=== PATIENT | male | born 1940 | race Caucasian/White ===

== ENCOUNTER 2017-10-04 23:47 | Emergency (ER) | payer MEDICARE ==
[2017-10-05 00:42] VITALS: BP 168/67
--- NOTE | 2017-10-05 01:10 | ED ---
Tyler Mcnamara Angela, scribed for Magalys Maddox MD on 10/05/17 at 0035 . Palpitations / Dysrhythmia - HPI Summary HPI Summary: This pt is a 77 y/o male, accompanied by his daughter, presenting to [facility] for high blood pressure and low heart rate. Daughter is giving the history for the pt. Daughter brings pt in today for pt's high blood pressure and low heart rate since yesterday. Daughter states that yesterday, pt's angle shearer (Dr. Moncada) increased the pt's Metoprolol from 25 mg to 50 mg. Pt took the 50 mg metoprolol yesterday (10/04/17) in the morning. Pt is currently aymptomatic. He denies dizziness, chest pain, SOB, syncope. PMHx: atrial fibrillation, [place], blindness. Pt is on anticoagulants. - History of Current Complaint Chief Complaint: EDDysrhythmPalp Time Seen by Provider: 10/05/17 00:20 Hx Obtained From: Family/High Density Press Operator - Daughter Onset/Duration: Lasting Days, Still Present Timing: Constant Character: Slow - heart rate Aggravating: Medication - increase dosage of Metoprolol. Alleviating: Nothing Associated Signs & Symptoms: Negative - Allergy/Home Medications Allergies/Adverse Reactions: Allergies Allergy/AdvReac Type Severity Reaction Status Date / Time No Known Allergies Allergy Verified 01/20/15 12:29 PMH/Surg Hx/FS Hx/Imm Hx Endocrine/Hematology History: Reports: Hx Anticoagulant Therapy - pradaxa, Hx Diabetes - ON ORAL MEDS Cardiovascular History: Reports: Hx Atrial Fibrillation, Hx Coronary Artery Disease, Hx Hypercholesterolemia, Hx Hypertension - ON MEDS, Hx Peripheral Vascular Disease Respiratory History: Reports: Other Respiratory Problems/Disorders - lung nodule GI History: Reports: Other GI Disorders - Schatzki ring Sensory History: Reports: Hx Cataracts, Hx Contacts or Glasses - GLASSES, Hx Glaucoma, Hx Legally Blind Denies: Hx Hearing Aid Opthamlomology History: Reports: Hx Cataracts, Hx Contacts or Glasses - GLASSES , Hx Glaucoma, Hx Legally Blind Neurological History: Denies: Hx Headaches, Hx Migraine, Hx Seizures, Other Neuro Impairments/ Disorders Psychiatric History: Denies: Hx Anxiety, Hx Depression - Surgical History Surgery Procedure, Year, and Place: THROAT SURGERY [place]. [address] [facility]. [facility] Hx Anesthesia Reactions: No Infectious Disease History: No Infectious Disease History: Denies: Hx of Known/Suspected MRSA, Traveled Outside the [place] in Last 30 Days - Family History Known Family History: Positive: Unknown - pt is not aware - Social History Alcohol Use: None Substance Use Type: Reports: None Smoking Status (MU): Never Smoked Tobacco Have You Smoked in the Last Year: No Review of Systems Negative: Fever, Chills Cardiovascular: Other - low heart rate and high blood pressure, per daughter Negative: Chest Pain Negative: Shortness Of Breath Gastrointestinal: Negative Genitourinary: Negative Musculoskeletal: Negative Skin: Negative Neurological: Other - NEG: dizziness Negative: Syncope All Other Systems Reviewed And Are Negative: Yes Physical Exam - Summary Physical Exam Summary: VITAL SIGNS: Reviewed. GENERAL: Patient is a well-developed and nourished male who is lying comfortable in the stretcher. Patient is not in any acute respiratory distress. HEAD AND FACE: No signs of trauma. No ecchymosis, hematomas or skull depressions. No sinus tenderness. EYES: PERRLA, EOMI x 2, No injected conjunctiva, no nystagmus. EARS: Hearing grossly intact. Ear canals and tympanic membranes are within normal limits. MOUTH: Oropharynx within normal limits. NECK: Supple, trachea is midline, no adenopathy, no JVD, no carotid bruit, no c- spine tenderness, neck with full ROM. CHEST: Symmetric, no tenderness at palpation LUNGS: Clear to auscultation bilaterally. No wheezing or crackles. CVS: Bradycardia that is irregular, S1 and S2 present, no murmurs or gallops appreciated. ABDOMEN: Soft, non-tender. No signs of distention. No rebound no guarding, and no masses palpated. Bowel sounds are normal. EXTREMITIES: FROM in all major joints, no edema, no cyanosis or clubbing. NEURO: Alert and oriented x 3. No acute neurological deficits. Speech is normal and follows commands. SKIN: Dry and warm Triage Information Reviewed: Yes Vital Signs On Initial Exam: Initial Vitals Temp Pulse Resp BP Pulse Ox 97.3 F 102 18 177/72 100 10/04/17 23:50 10/04/17 23:50 10/04/17 23:50 10/04/17 23:50 10/04/17 23:50 Vital Signs Reviewed: Yes Diagnostics - Vital Signs Vital Signs Temp Pulse Resp BP Pulse Ox 10/04/17 23:50 97.3 F 102 18 177/72 100 - Laboratory Lab Statement: Any lab studies that have been ordered have been reviewed, and results considered in the medical decision making process. - EKG 00:03 Cardiac Rate: Bradycardia EKG Rhythm: Atrial Fibrillation - at 49 bpm EKG Interpretation: Left axis deviation. Intraventricular conduction delay. Course/Dx - Course Assessment/Plan: This pt is a 77 y/o male with PMHx of afib presents with high blood pressure and low heart rate. Daughter is giving the history for the pt. Daughter brings pt in today for pt's high blood pressure and low heart rate since yesterday. Daughter states that yesterday, pt's angle shearer (Dr. Moncada) increased the pt's Metoprolol from 25 mg to 50 mg. Pt is anticoagulated. Pt is asymptomatic. He denies dizziness, SOB, chest pain, or syncope. Pt is hemodynamically stable. Heart rate fluctuates between 42 and 55 on the monitor. Pt has a history of afib. Pt's Lopressor dose was changed from 25 mg to 50 mg by his angle shearer yesterday. Pt was advised to decrease his Lopressor dose to 25 mg and follow up with his angle shearer. Pt will be discharged to home. Daughter and pt understand and agree with the plan. - Diagnoses Provider Diagnoses: Atrial fibrillation, Bradycardia Discharge - Discharge Plan Condition: Stable Disposition: HOME Patient Education Materials: A-fib (Atrial Fibrillation) (ED), Bradycardia (ED) Referrals: Coy Forrester MD [Primary Care Provider] - El Moncada MD [Medical Doctor] - 3 Days Additional Instructions: Please follow up with your angle shearer. RETURN TO EMERGENCY DEPARTMENT FOR ANY NEW OR WORSENING SYMPTOMS. The documentation as recorded by the Tyler recinos Angela accurately reflects the service I personally performed and the decisions made by me, Magalys Maddox MD.
== END 2017-10-05 01:08 | disposition home or self-care (01) ==
LOC: ED 23:47
DX: I48.91 Unspecified atrial fibrillation (principal); R00.1 Bradycardia, unspecified; E11.9 Type 2 diabetes mellitus without complications; Z79.01 Long term (current) use of anticoagulants; I25.10 Atherosclerotic heart disease of native coronary artery without angina pectoris; I10 Essential (primary) hypertension; E78.00 Pure hypercholesterolemia, unspecified; I73.9 Peripheral vascular disease, unspecified
CPT/HCPCS: 93005; 99282

== ENCOUNTER 2019-03-11 11:19 | Inpatient (IN) | payer MEDICARE, MEDICAID ==
--- NOTE | 2019-03-11 12:01 | ED ---
Complex/Multi-Sys Presentation - HPI Summary HPI Summary: This patient is a 78 year old M presenting to [facility] by EMS accompanied by daughter with a chief complaint of sudden weakness since 03/11/19. Patients daughter called EMS, after pt complained of weakness that has since resolved. Pt s daughter also reported the pt had diaphoresis, SOB, general weakness, CP on right side radiating to back of shoulder, pressure in stomach, neck pain, normal bowel movement and urination. Patients daughter denies cough, nausea and SOB in the ED. Daughter reports pt had low blood pressure. Pt has had no recent injuries or falls. Pt took nitroglycerine prior to EMS arrival. Symptoms alleviated by nitroglycerin. Pt has a Hx of atrial fibrillation. Pt was able to ambulate. - History Of Current Complaint Chief Complaint: EDGeneral Time Seen by Provider: 03/11/19 11:22 Hx Obtained From: Patient Onset/Duration: Lasting Minutes, Resolved Timing: Minutes Severity Currently: None Severity Initially: Moderate Location: Pain At: - neck which has resolved Associated Signs And Symptoms: Positive: Weakness, SOB - resolved, Chest Pain, Abdominal Pain - pressure, Diaphoresis, Other - neck pain. Negative: Cough - Allergies/Home Medications Allergies/Adverse Reactions: Allergies Allergy/AdvReac Type Severity Reaction Status Date / Time No Known Allergies Allergy Verified 01/20/15 12:29 Home Medications: Home Medications Azelastine HCl [Azelastine Hydrochloride] 0.1 % BOTH NARES BID 03/11/19 [ History Confirmed 03/11/19] Ciclopirox Olamine [Ciclopirox] 0.77 % TOPICAL BID 03/11/19 [History Confirmed 03/11/19] Furosemide TAB* [Lasix TAB*] 20 mg PO DAILY 03/11/19 [History Confirmed 03/11/19 ] Losartan TAB* [Cozaar TAB*] 100 mg PO DAILY 03/11/19 [History Confirmed 03/11/19 ] Mirtazapine TAB* [Remeron TAB*] 7.5 mg PO BEDTIME 03/11/19 [History Confirmed ] Spironolactone/HCTZ 25-25 MG* [Aldactazide 25-25*] 1 tab PO DAILY 03/11/19 [ History Confirmed 03/11/19] dilTIAZem HCl [Diltiazem 24Hr ER] 240 mg PO DAILY 03/11/19 [History Confirmed ] glipiZIDE TAB.XL* [Glucotrol XL*] 2.5 mg PO DAILY 03/11/19 [History Confirmed ] PMH/Surg Hx/FS Hx/Imm Hx Endocrine/Hematology History: Reports: Hx Anticoagulant Therapy - pradaxa, Hx Diabetes - ON ORAL MEDS Cardiovascular History: Reports: Hx Atrial Fibrillation, Hx Coronary Artery Disease, Hx Hypercholesterolemia, Hx Hypertension - ON MEDS, Hx Peripheral Vascular Disease Denies: Hx Pacemaker/ICD Respiratory History: Reports: Other Respiratory Problems/Disorders - lung nodule GI History: Reports: Other GI Disorders - Schatzki ring Sensory History: Reports: Hx Cataracts, Hx Contacts or Glasses - GLASSES, Hx Glaucoma, Hx Legally Blind Denies: Hx Hearing Aid Opthamlomology History: Reports: Hx Cataracts, Hx Contacts or Glasses - GLASSES , Hx Glaucoma, Hx Legally Blind Neurological History: Denies: Hx Headaches, Hx Migraine, Hx Seizures, Other Neuro Impairments/ Disorders Psychiatric History: Denies: Hx Anxiety, Hx Depression, Hx Panic Disorder - Surgical History Surgery Procedure, Year, and Place: 1960s [facility] SURGERY [place]. [address] [facility]. 2008 [facility] Hx Anesthesia Reactions: No Infectious Disease History: No Infectious Disease History: Denies: Hx of Known/Suspected MRSA, Traveled Outside the [place] in Last 30 Days - Family History Known Family History: Positive: Unknown - pt is not aware - Social History Alcohol Use: None Substance Use Type: Reports: None Smoking Status (MU): Never Smoked Tobacco Have You Smoked in the Last Year: No Review of Systems Positive: Skin Diaphoresis Positive: Chest Pain Positive: Shortness Of Breath. Negative: Cough Positive: Abdominal Pain Positive: Other - neck pain Positive: Weakness All Other Systems Reviewed And Are Negative: Yes Physical Exam - Summary Physical Exam Summary: Constitutional: Well-developed, Well-nourished, Alert. (-) Distressed Skin: Warm, Dry HENT: Normocephalic; Atraumatic Eyes: Conjunctiva normal Neck: Musculoskeletal ROM normal neck. (-) JVD, (-) Stridor, (-) Tracheal deviation Cardio: Rhythm regular, rate normal, Heart sounds normal; Intact distal pulses; The pedal pulses are 2+ and symmetric. Radial pulses are 2+ and symmetric. (-) Murmur Pulmonary/Chest wall: Effort normal. (-) Respiratory distress, (-) Wheezes, (-) Rales Abd: Soft, (-) tenderness, (-) Distension, (-) Guarding, (-) Rebound Musculoskeletal: (-) Edema Lymph: (-) Cervical adenopathy Neuro: Alert, Oriented x3 Psych: Mood and affect Normal Triage Information Reviewed: Yes Vital Signs On Initial Exam: Initial Vitals Temp Pulse Resp BP Pulse Ox 98.5 F 69 16 167/87 97 03/11/19 11:32 03/11/19 11:32 03/11/19 11:32 03/11/19 11:32 03/11/19 11:32 Vital Signs Reviewed: Yes Diagnostics - Vital Signs Vital Signs Temp Pulse Resp BP Pulse Ox 03/11/19 11:32 98.5 F 69 16 167/87 97 - Laboratory Result Diagrams: 03/11/19 13:37 03/11/19 17:35 Lab Statement: Any lab studies that have been ordered have been reviewed, and results considered in the medical decision making process. - Radiology CXR Radiology Interpretation Completed By: Radiologist Summary of Radiographic Findings: CXR reveals, per radiologist, IMPRESSION: NO ACTIVE CARDIOPULMONARY DISEASE IS NOTED. ED physician has reviewed this radiology report. - CT Neck CTA CT Interpretation Completed By: Radiologist Summary of CT Findings: Neck CTA reveals, per radiologist. IMPRESSION: #. Bilateral occluded carotid arteries as described. Supply of the anterior circulation at. the [place] by the posterior circulation via prominent posterior communicating. arteries. #. Negative for dissection or aneurysm of the thoracic aorta. #. Negative for pulmonary embolism. ED physician has reviewed this radiology report. Chest/Thorax CTA CT Interpretation Completed By: Radiologist Summary of CT Findings: Chest/Thorax CTA reveals, per radiologist IMPRESSION: # . Bilateral occluded carotid arteries as described. Supply of the anterior circulation at the [place] by the posterior circulation via prominent posterior communicating arteries. #. Negative for dissection or aneurysm of the thoracic aorta. #. Negative for pulmonary embolism. ED physician has reviewed this radiology report. - EKG 1134 EKG Rhythm: Atrial Fibrillation Summary of EKG Findings: An EKG reveals atrial fibrillation rate 85 bpm, no [place], prolonged QRS, borderline QTc, ST-elevatation in V1, V2, V3, and V4, t-waves inverted in V6, and V1, Atrial fibrillation and incomplete, RBB, LVH, nonspecific EKG. Re-Evaluation - Re-Evaluation First Eval Re-Evaluation Time: 16:49 Comment: Discussed results with pt. Second Eval Re-Evaluation Time: 17:54 Comment: Discusses plan of care with pt. Third Eval Re-Evaluation Time: 18:50 Comment: Told pt he would be admitted. Complex Multi-Symp Course/Dx Course Of Treatment: This patient is a 78 year old M presenting to [facility] by EMS accompanied by daughter with a chief complaint of sudden weakness since . Patients daughter called EMS, after pt complained of weakness that has since resolved. Pts daughter also reported the pt had diaphoresis, SOB, general weakness, CP on right side radiating to back of shoulder, pressure in stomach, neck pain, normal bowel movement and urination. Patients daughter denies cough, nausea and SOB in the ED. Daughter reports pt had low blood pressure. Pt has had no recent injuries or falls. Pt took nitroglycerine prior to EMS arrival. Symptoms alleviated by nitroglycerin. Pt has a Hx of atrial fibrillation. Pt was able to ambulate. Physical Exam Findings are normal. Blood work obtained. An EKG reveals atrial fibrillation rate 85 bpm, no [place], prolonged QRS, borderline QTc, ST-elevatation in V1, V2, V3, and V4, t-waves inverted in V6, and V1, Atrial fibrillation and incomplete, RBB, LVH, nonspecific EKG. CXR reveals, per radiologist, IMPRESSION: NO ACTIVE CARDIOPULMONARY DISEASE IS NOTED. Neck CTA reveals, per radiologist. IMPRESSION: #. Bilateral occluded carotid arteries as described. Supply of the anterior circulation at. the [place] by the posterior circulation via prominent posterior communicating. arteries. #. Negative for dissection or aneurysm of the thoracic aorta. #. Negative for pulmonary embolism. Chest/ Thorax CTA reveals, per radiologist IMPRESSION: #. Bilateral occluded carotid arteries as described. Supply of the anterior circulation at. the [place] by the posterior circulation via prominent posterior communicating. arteries. #. Negative for dissection or aneurysm of the thoracic aorta. #. Negative for pulmonary embolism. We discussed patient care with Dr. Corea and he refuses pt for transfer. Dr. Morrison and he accepted pt. Dx is carotid dissection. Patient will be admitted to [facility]. The patient is agreeable with this plan. - Diagnoses Provider Diagnoses: Carotid dissection, bilateral - Physician Notifications Discussed Care Of Patient With: Rodrigo Morrison Time Discussed With Above Provider: 18:26 Instructed by Provider To: Other - Discussed case with Dr. Morrison, who agrees to admit pt; 18:20 - Dr. Croea at [facility] refuses transfer. Discharge - Sign-Out/Discharge Documenting (check all that apply): Patient Departure - Admit Patient Received Moderate/Deep Sedation with Procedure: No - Discharge Plan Condition: Good Disposition: ADMITTED TO [facility] Referrals: Coy Forrester MD [Primary Care Provider] - - Billing Disposition and Condition Condition: GOOD Disposition: Admitted to [facility] - Attestation Statements Document Initiated by Madhuri: Yes Documenting Scribe: Coni Allen Provider For Whom Madhuri is Documenting (Include Credential): Janet Escobedo MD Scribe Attestation: Coni Mcnamara scribed for Janet Sheldon MD on 03/11/19 at 1908. Scribe Documentation Reviewed: Yes Provider Attestation: The documentation as recorded by the Coni recinos accurately reflects the service I personally performed and the decisions made by , Janet Sheldon MD Status of Scribe Document: Viewed
--- OUTSIDE RECORDS SUMMARY | 2019-03-11 12:04 | XMS REPORT | Continuity of Care Document ---
:1940 External Reference #:[id number] Author Name Margarita Almonte Care Team Providers Name Role Phone Coy Forrester MD Primary Care Physician Unavailable Payers Date Identification Numbers Payment Provider Subscriber Policy Number: [id number] Medicare Timbo Bishop PayID: [id number] [address] [place] [address] Policy Number: [id number] Medicaid Timbo Bishop Group Name: 1 1 [address] PayID: [id number] [place] [address] Expires: 2018 Policy Number: [id number] Medicaid Timbo Bishop PayID: [id number] [address] [place] [address] Social History Type Date Description Comments Sex Unknown Tobacco Use Start: Unknown Patient has never smoked Smoking Status Reviewed: 02/12/19 Patient has never smoked Allergies, Adverse Reactions, Alerts Description No Known Drug Allergies Medications Active Medications SIG Qnty Indications Ordering Provider Date Ciclopirox Olamine apply to affected 1tube L30.9 Ozzie Ace 09/10/2018 0.77% area twice daily Latasha Solo Cream Spironolactone/Hydroch Take 1 Tablet By Unknown lorothiazide Mouth Every Day 25-25mg Tablets Eliquis 1 by mouth twice Unknown 5mg Tablets a day Travoprost both eyes at Unknown 0.004% bedtime Solution Brimonidine Tartrate 1 drop to both Unknown 0.2% eyes twice daily Solution Losartan Potassium 1 by mouth every Unknown 50mg day Tablets Diltiazem HCL 1 by mouth every Unknown 180mg morning, 2 by Tablets mouth every evening Metoprolol Succinate 1 by mouth every Unknown ER day 50mg Tablets ER 24HR Nitroglycerin 1 under tounge Unknown 0.4mg every 5 min prn, Tablets Sub may repeat 3x Timolol Maleate 1 drop to both Unknown 0.25% eyes once a day Solution Atorvastatin Calcium 1 by mouth every Unknown 80mg day Tablets History Medications Triamcinolone twice daily for 30gm L30.9 Ozzie Ace 08/09/2018 - Acetonide 2 weeks, then Latasha Solo 02/12/2019 0.1% Ointment hold for 1 week, then twice daily for 2 weeks Amoxicillin 1 by mouth two 20tabs LLillie.[id number] Ozzie Ace 07/25/2018 - 500mg times a day Latasha Solo 08/08/2018 Tablets Ciclopirox Olamine apply to 1tmarisela Ace 03/29/2017 - affected area Latasha Solo 09/09/2018 0.77% Cream twice daily Fluconazole 1 by mouth every 10tabs Gabriel Ace 11/02/2016 - 200mg day Latasha Solo 11/12/2016 Tablets Ciclopirox Olamine apply to 1tmarisela Bhatt03.032 Ozzie Ace 08/30/2016 - affected area Latasha Solo 04/26/2017 0.77% Cream twice daily for 6 weeks Clindamycin HCL 1 tabs by mouth 30caps I73.9 Ozzie Ace 08/16/2016 - 300mg 3 times a day Latasha Solo 08/30/2016 Capsules Bactrim DS 1 by mouth twice Unknown - 800-160mg a day 07/30/2016 Tablets Pradaxa 1 by mouth twice Unknown - 75mg Capsules a day 07/30/2016 Clopidogrel Bisulfate 1 by mouth every Unknown - day 07/30/2016 75mg Tablets Doxycycline Hyclate one tablet twice Unknown - daily 08/29/2016 100mg Capsules Vital Signs Date Vital Result Comment 02/12/2019 11:15am Height 64 inches 5'4" Weight 124.38 lb Heart Rate 72 /min BP Systolic Sitting 158 mmHg BP Diastolic Sitting 88 mmHg Respiratory Rate 14 /min Body Temperature 97.1 F BMI (Body Mass Index) 21.3 kg/m2 11/12/2018 11:13am Height 64 inches 5'4" Weight 125.38 lb Heart Rate 92 /min BP Systolic Sitting 162 mmHg BP Diastolic Sitting 98 mmHg Respiratory Rate 14 /min Body Temperature 96.4 F BMI (Body Mass Index) 21.5 kg/m2 09/10/2018 11:20am Height 64 inches 5'4" Weight 130.25 lb Heart Rate 74 /min BP Systolic Sitting 142 mmHg BP Diastolic Sitting 90 mmHg Respiratory Rate 14 /min Body Temperature 97.6 F BMI (Body Mass Index) 22.4 kg/m2 08/09/2018 10:18am Height 64 inches 5'4" Weight 133.00 lb Heart Rate 72 /min BP Systolic Sitting 180 mmHg BP Diastolic Sitting 96 mmHg Respiratory Rate 14 /min Body Temperature 96.2 F BMI (Body Mass Index) 22.8 kg/m2 07/25/2018 4:35pm Height 64 inches 5'4" Weight 132.12 lb Heart Rate 92 /min BP Systolic Sitting 180 mmHg BP Diastolic Sitting 100 mmHg Respiratory Rate 14 /min Body Temperature 97.1 F BMI (Body Mass Index) 22.7 kg/m2 11/07/2017 11:17am Height 64 inches 5'4" Weight 134.12 lb Heart Rate 110 /min BP Systolic Sitting 178 mmHg BP Diastolic Sitting 78 mmHg Respiratory Rate 14 /min Body Temperature 97.2 F BMI (Body Mass Index) 23.0 kg/m2 05/31/2017 1:27pm Height 64 inches 5'4" Weight 132.00 lb Heart Rate 60 /min BP Systolic Sitting 128 mmHg BP Diastolic Sitting 72 mmHg Respiratory Rate 14 /min Body Temperature 97.3 F BMI (Body Mass Index) 22.7 kg/m2 05/01/2017 2:59pm Height 64 inches 5'4" Weight 136.12 lb Heart Rate 88 /min BP Systolic Sitting 142 mmHg BP Diastolic Sitting 84 mmHg Respiratory Rate 14 /min Body Temperature 97.9 F BMI (Body Mass Index) 23.4 kg/m2 03/29/2017 1:10pm Height 64 inches 5'4" Weight 132.50 lb Heart Rate 88 /min BP Systolic Sitting 160 mmHg BP Diastolic Sitting 96 mmHg Respiratory Rate 14 /min Body Temperature 97.9 F BMI (Body Mass Index) 22.7 kg/m2 01/25/2017 2:22pm Height 64 inches 5'4" Weight 136.12 lb Heart Rate 84 /min BP Systolic Sitting 140 mmHg BP Diastolic Sitting 86 mmHg Respiratory Rate 14 /min Body Temperature 97.0 F BMI (Body Mass Index) 23.4 kg/m2 12/21/2016 2:49pm Height 64 inches 5'4" Weight 134.00 lb Heart Rate 72 /min BP Systolic Sitting 158 mmHg BP Diastolic Sitting 88 mmHg Respiratory Rate 14 /min Body Temperature 97.1 F BMI (Body Mass Index) 23.0 kg/m2 12/04/2016 3:08pm Height 64 inches 5'4" Weight 136.00 lb Heart Rate 56 /min BP Systolic Sitting 120 mmHg BP Diastolic Sitting 68 mmHg Respiratory Rate 14 /min Body Temperature 96.9 F BMI (Body Mass Index) 23.3 kg/m2 11/02/2016 1:30pm Height 64 inches 5'4" Weight 134.00 lb Heart Rate 84 /min BP Systolic Sitting 124 mmHg BP Diastolic Sitting 88 mmHg Respiratory Rate 14 /min Body Temperature 97.5 F BMI (Body Mass Index) 23.0 kg/m2 09/22/2016 11:15am Height 64 inches 5'4" Weight 139.12 lb Heart Rate 72 /min BP Systolic Sitting 148 mmHg BP Diastolic Sitting 80 mmHg Respiratory Rate 14 /min Body Temperature 96.5 F BMI (Body Mass Index) 23.9 kg/m2 08/30/2016 2:46pm Height 64 inches 5'4" Weight 139.38 lb Heart Rate 60 /min BP Systolic Sitting 148 mmHg BP Diastolic Sitting 88 mmHg Respiratory Rate 14 /min Body Temperature 96.9 F BMI (Body Mass Index) 23.9 kg/m2 08/16/2016 2:14pm Height 64 inches 5'4" Weight 142.00 lb Heart Rate 72 /min BP Systolic Sitting 142 mmHg BP Diastolic Sitting 82 mmHg Respiratory Rate 14 /min Body Temperature 97.9 F BMI (Body Mass Index) 24.4 kg/m2 07/31/2016 3:10pm Height 64 inches 5'4" Weight 129.00 lb Heart Rate 62 /min BP Systolic Sitting 128 mmHg right arm, reg cuff BP Diastolic Sitting 84 mmHg right arm, reg cuff Respiratory Rate 20 /min BMI (Body Mass Index) 22.1 kg/m2 07/31/2016 2:12pm Height 64 inches Weight 131.00 lb Heart Rate 66 /min BP Systolic Sitting 118 mmHg BP Diastolic Sitting 86 mmHg Respiratory Rate 14 /min Body Temperature 96.1 F BMI (Body Mass Index) 22.5 kg/m2 Results Test Date Facility Test Result H/L Range Note Comp Metabolic Panel 08/15/2016 [facility] Sodium 138 mmol/L N 133-[address] [place] [address] [phone] Potassium 4.5 mmol/L N 3.5-5.0 Chloride 105 mmol/L N 101-111 Co2 Carbon Dioxide 30 mmol/L N 22-32 Anion Gap 3 mmol/L N 2-11 Glucose 91 mg/dL N 70-100 Blood Urea Nitrogen 21 mg/dL N 6-24 Creatinine 1.11 mg/dL N 0.67-1.17 BUN/Creatinine Ratio 18.9 N 8-20 Calcium 9.8 mg/dL N 8.6-10.3 Total Protein 6.7 g/dL N 6.4-8.9 Albumin 4.1 g/dL N 3.2-5.2 Globulin 2.6 g/dL N 2-4 Albumin/Globulin Ratio 1.6 N 1-3 Total Bilirubin 1.00 mg/dL N 0.2-1.0 Alkaline Phosphatase 67 U/L N 34-104 Alt 33 U/L N 7-52 Ast 22 U/L N 13-39 Egfr Non- 64.1 N >60 Egfr 82.4 N >60 1 Laboratory test 08/15/2016 [facility] C Reactive < 1.00 N < 5.00 [address] Protein mg/[place] [address] [phone] Laboratory test 07/25/2016 [facility] Point of Care 185 mg/dL High 74-106 [address] [place] [address] [phone] CBC Auto Diff 07/24/2016 [facility] White Blood 12.9 High 3.5- 10.[address] Count 10^3/[place] [address] [phone] Red Blood Count 4.11 10^6/uL N 4.0-5.4 Hemoglobin 13.0 g/dL Low 14.0-18.0 Hematocrit 40 % Low 42-52 Mean Corpuscular Volume 97 fL High 80-94 Mean Corpuscular Hemoglobin 32 pg High 27-31 Mean Corpuscular HGB Conc 32 g/dL N 31-36 Red Cell Distribution Width 15 % N 10.5-15 Platelet Count 233 10^3/uL N 150-450 Mean Platelet Volume 9 um3 N 7.4-10.4 Abs Neutrophils 10.9 10^3/uL High 1.5-7.7 Abs Lymphocytes 1.3 10^3/uL N 1.0-4.8 Abs Monocytes 0.6 10^3/uL N 0-0.8 Abs Eosinophils 0 10^3/uL N 0-0.6 Abs Basophils 0.2 10^3/uL N 0-0.2 Abs Nucleated RBC 0 10^3/uL N Granulocyte % 84.3 % High 38-83 Lymphocyte % 9.7 % Low 25-47 Monocyte % 4.7 % N 1-9 Eosinophil % 0.1 % N 0-6 Basophil % 1.2 % N 0-2 Nucleated Red Blood Cells % 0 N Basic Metabolic Panel 07/24/2016 [facility] Sodium 134 mmol/L N 133-145 [address] [place] [address] [phone] Potassium 5.1 mmol/L High 3.5-5.0 Chloride 102 mmol/L N 101-111 Co2 Carbon Dioxide 26 mmol/L N 22-32 Anion Gap 6 mmol/L N 2-11 Glucose 177 mg/dL High 70-100 Blood Urea Nitrogen 31 mg/dL High 6-24 Creatinine 2.33 mg/dL High 0.67-1.17 BUN/Creatinine Ratio 13.3 N 8-20 Calcium 9.9 mg/dL N 8.6-10.3 Egfr Non- 27.2 N >60 Egfr 35.0 N >60 4 1 Because ethnic data is not always readily available, this report includes an eGFR for both -Americans and non- Americans. The National Kidney Disease Education Program (NKDEP) does not endorse the use of the MDRD equation for patients that are not between the ages of 18 and 70, are , have extremes of body size, muscle mass, or nutritional status, or are non- or non-. According to the National Kidney Foundation, irrespective of diagnosis, the stage of the disease is based on the level of kidney function: Stage Description GFR(mL/min/1.73 m(2)) 1 Kidney damage with normal or decreased GFR 90 2 Kidney damage with mild decrease in GFR 60-89 3 Moderate decrease in GFR 30-59 4 Severe decrease in GFR 15-29 5 Kidney failure <15 (or dialysis) 2 Acute inflammation: >10.00 3 Director Of Services: [id number] JAYDEN ZEE 4 Because ethnic data is not always readily available, this report includes an eGFR for both -Americans and non- Americans. The National Kidney Disease Education Program (NKDEP) does not endorse the use of the MDRD equation for patients that are not between the ages of 18 and 70, are , have extremes of body size, muscle mass, or nutritional status, or are non- or non-. According to the National Kidney Foundation, irrespective of diagnosis, the stage of the disease is based on the level of kidney function: Stage Description GFR(mL/min/1.73 m(2)) 1 Kidney damage with normal or decreased GFR 90 2 Kidney damage with mild decrease in GFR 60-89 3 Moderate decrease in GFR 30-59 4 Severe decrease in GFR 15-29 5 Kidney failure <15 (or dialysis) Procedures Date Code Description Status 07/25/2016 05405 Angio Extremity, Bilateral Completed 07/25/2016 22888 Cath Placement-Abdom, Pelvic Or Lower Extremity Completed Encounters Type Date Location Provider Dx Diagnosis Office Visit 11/12/2018 [facility] Douglas Ace L30.9 Dermatitis, 10:50a Infectious Nehal Solo. unspecified Diseases Office Visit 09/10/2018 [facility] Douglas Ace L30.9 Dermatitis, 10:50a Infectious Nehal Solo. unspecified Diseases L03.032 Cellulitis of left toe Office Visit 08/09/2018 [facility] Ozzie Ace L30.9 Dermatitis, 10:10a For Infectious Latasha Solo unspecified Diseases Office Visit 07/25/2018 [facility] Ozzie Ace L03.032 Cellulitis of 4:20p For Infectious [place]que[place], M.D. left toe Diseases Office Visit 11/07/2017 [facility] Ozzie Ace R21 Rash and other 11:10a For Infectious Nehal Solo. nonspecific skin Diseases eruption Office Visit 05/31/2017 [facility] Ozzie Ace L03.032 Cellulitis of 1:20p For Infectious Nehal Solo. left toe Diseases Office Visit 05/01/2017 [facility] Ozzie Ace L03.032 Cellulitis of 3:00p For Infectious Nehal Solo. left toe Diseases Office Visit 03/29/2017 [facility] Ozzie Ace E11.40 Type 2 diabetes 1:20p For Infectious Latasha Solo mellitus with Diseases diabetic neuropathy, unsp L03.032 Cellulitis of left toe Office Visit 01/25/2017 2:00p [facility] Douglas Ace I73.9 Peripheral Infectious Nehal Solo. vascular disease, Diseases unspecified E11.40 Type 2 diabetes mellitus with diabetic neuropathy, unsp L03.032 Cellulitis of left toe Office Visit 12/21/2016 2:40p [facility] Ozzie Ace I73.9 Peripheral Infectious Nehal Solo. vascular disease, Diseases unspecified Z86.19 Personal history of other infectious and parasitic diseases E11.9 Type 2 diabetes mellitus without complications H61.21 Impacted cerumen, right ear Office Visit 12/04/2016 3:00p [facility] Douglas Ace I73.9 Peripheral Infectious Nehal Solo. vascular disease, Diseases unspecified Z86.19 Personal history of other infectious and parasitic diseases L03.032 Cellulitis of left toe Office Visit 11/02/2016 1:20p [facility] Ozzie Ace L03.032 Cellulitis of For Infectious Latasha Solo left toe Diseases I73.9 Peripheral vascular disease, unspecified Office Visit 09/22/2016 11:10a [facility] Ozzie Ace L03.032 Cellulitis of For Infectious Latasha Solo left toe Diseases E11.9 Type 2 diabetes mellitus without complications Office Visit 08/30/2016 2:20p [facility] Douglas Ace I73.9 Peripheral Infectious Nehal Solo. vascular disease, Diseases unspecified L03.032 Cellulitis of left toe Office Visit 08/16/2016 1:40p [facility] Ozzie Ace L03.116 Cellulitis of For Infectious Nehal Solo. left lower limb Diseases I73.9 Peripheral vascular disease, unspecified Office Visit 07/31/2016 [facility] Ozzie Ace M86.272 Subacute 2:00p For Infectious Nehal Solo. osteomyelitis, left Diseases ankle and foot I73.9 Peripheral vascular disease, unspecified L03.032 Cellulitis of left toe Office Visit 07/31/2016 3:00p [facility] Reese Gandhi. I73.9 Peripheral Of [place] [facility] [place] Christel, vascular disease, FACC, FSCAI unspecified N18.4 Chronic kidney disease, stage 4 (severe) Office Visit 07/14/2016 [facility] Rambo M86.272 Subacute 10:37a wilmer Tobar M.D. 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 osteomyelitis, left Hospitalists ankle and foot E11.9 Type 2 diabetes mellitus without complications I73.9 Peripheral vascular disease, unspecified I10 Essential (primary) hypertension Office Visit 07/12/2016 10:37a [facility] Ozzie Ace L03.032 Cellulitis of For Infectious Latasha Solo left toe Diseases I73.9 Peripheral vascular disease, unspecified E11.40 Type 2 diabetes mellitus with diabetic neuropathy, unsp Office Visit 07/12/2016 [facility] Gisselle M86.272 Subacute 10:36a [facility], DO osteomyelitis, left Hospitalists ankle and foot E11.9 Type 2 diabetes mellitus without complications I73.9 Peripheral vascular disease, unspecified I10 Essential (primary) hypertension Office Visit 07/12/2016 1:19p [facility] Reese Fuentes I73.9 Peripheral Of [facility] [place] [facility] [place] Christel, vascular disease, FACC, FSCAI unspecified I48.2 Chronic atrial fibrillation Plan of Treatment Future Appointment(s):05/16/2019 10:30 am - Ozzie Solo M.D. at [facility] For Infectious Iayatrfq47/19/2019 - Ozzie Solo M.D.L30.9 Dermatitis, unspecifiedComments:chronic paronychia will see if any surgical options to open itReferral:Amado Burks MD, Surgery,OrthopedicFollow up:3 months
[2019-03-11 12:59] LABS: Troponin I 0.01 ng/mL (<0.04)
[2019-03-11 13:04] LABS: Blood Urea Nitrogen 27 mg/dL (6-24); CO2 Carbon Dioxide 23 mmol/L (22-32); Chloride 103 mmol/L (101-111); Glucose 226 mg/dL (70-100); Sodium 137 mmol/L (135-145)
[2019-03-11 13:05] LABS: ALT 14 U/L (7-52); Albumin 4.1 g/dL (3.2-5.2); Albumin/Globulin Ratio 1.4 (1-3); Alkaline Phosphatase 74 U/L (34-104); BUN/Creatinine Ratio 16.3 (8-20); Calcium 9.7 mg/dL (8.6-10.3); EGFR African American 48.5 (>60); EGFR Non-African American 40.1 (>60); Globulin 2.9 g/dL (2-4)
[2019-03-11 13:10] LABS: Anion Gap 11 mmol/L (2-11)
[2019-03-11 13:51] LABS: ABS Basophils 0.1 10^3/ul (0-0.2); ABS Lymphocytes 0.7 10^3/ul (1.0-4.8); ABS Monocytes 0.9 10^3/ul (0-0.8); ABS Neutrophils 15.8 10^3/ul (1.5-7.7); Eosinophil % 0.2 %; Hematocrit 45 % (42-52); Hemoglobin 14.9 g/dL (14.0-18.0); Lymphocyte % 3.8 %; Mean Corpuscular HGB Conc 33 g/dL (31-36); Mean Corpuscular Hemoglobin 32 pg (27-31); Mean Corpuscular Volume 97 fL (80-94); Mean Platelet Volume 9.3 fL (7.4-10.4); Platelet Count 193 10^3/uL (150-450); Red Blood Count 4.63 10^6 /uL (4.18-5.48); Red Cell Distribution Width 14 % (10-15); White Blood Count 17.5 10^3/uL (3.5-10.8)
[2019-03-11] MEDS ORDERED: Iodixanol* (CONTRAST) 320 MG/ML 100 ML SDV IV ONE (15:21)
[2019-03-11 18:06] LABS: Potassium Redraw 4.2 mmol/L (3.5-5.0)
--- NOTE | 2019-03-11 20:15 | HP ---
History of Present Illness - History of Present Illness Reason for Visit: Generalized weakness History of Present Illness: Patient speaks ivorian and refused translation system in ER so the son who was present was translating. 78 year old male with DM, A. Fib on Eliquis, HTN here due to sudden onset weakness 03/11/2019 at 9AM lasting about an hour. Weakness was generalized not localized to one limb. He felt faint and felt like he was going to pass out. Also had chest pain on the right anterior chest radiating to the back of his neck. Patient also had diaphoresis, and noted to have low BP at home. Denies any SOB, nausea. Symptoms resolved with nitroglycerine. Initially was noted to have low BP but while in ER the BP went from low to very high along with CT findings concerning for bilateral carotid occlusions. Past Medical History Diabetes - ON ORAL MEDS Atrial Fibrillation on Eliquis Coronary Artery Disease s/p one [place] but no stents. Hypercholesterolemia Hypertension - ON MEDS Peripheral Vascular Disease Dysphagia Schatzki ring Cataracts s/p surgries Glaucoma Legally Blind Past Surgical History 1960s Throat SURGERY [facility]. [address] [facility] OFFICE. 2008 GLAUCOMA SURGERY [facility] - Past Family History Family History: None - Past Social History Smoke: No Occupation: Retired from construction. Alcohol: None Drugs: None Lives: With Family - Lives with . Son and [id number] live closeby. Review of Systems - Measurements Intake and Output: Intake and Output Last 24 Hours 03/09/19 03/10/19 03/11/19 03/12/19 06:59 06:59 06:59 06:59 Weight 130 lb - Review of Systems Constitutional Symptoms: Negative: Fever Dermatology: Negative: Rash Eyes: Positive: Glaucoma - With Legal Blindness Pulmonary: Negative: Cough, Wheezing Cardiology: Positive: Chest Pain Negative: Edema Gastroenterology: Negative: Abdominal Pain, Nausea, Vomiting Genital - Urinary: Negative: Dysuria Musculoskeletal: Negative: Joint Pain Objective Vital Signs - 8 hr 03/11/19 03/11/19 03/11/19 12:37 13:00 13:07 Pulse Rate 75 74 73 Respiratory 1 15 19 Rate Blood Pressure 132/66 131/66 (mmHg) O2 Sat by Pulse 97 96 96 Oximetry 03/11/19 03/11/19 03/11/19 13:37 14:00 14:07 Pulse Rate 71 73 72 Respiratory 14 18 11 Rate Blood Pressure 110/63 120/77 (mmHg) O2 Sat by Pulse 97 97 97 Oximetry 03/11/19 03/11/19 03/11/19 14:37 15:00 15:07 Pulse Rate 73 59 60 Respiratory 17 9 11 Rate Blood Pressure 142/71 127/70 (mmHg) O2 Sat by Pulse 97 95 97 Oximetry 03/11/19 03/11/19 03/11/19 15:37 16:10 16:37 Pulse Rate 58 67 57 Respiratory 9 20 22 Rate Blood Pressure 120/64 151/83 (mmHg) O2 Sat by Pulse 96 99 95 Oximetry 03/11/19 03/11/19 03/11/19 17:00 17:07 17:37 Pulse Rate 59 58 Respiratory 10 11 5 Rate Blood Pressure 151/75 151/64 (mmHg) O2 Sat by Pulse 98 99 Oximetry 03/11/19 03/11/19 18:00 18:07 Pulse Rate 56 62 Respiratory 14 5 Rate Blood Pressure 136/74 (mmHg) O2 Sat by Pulse 99 97 Oximetry Oxygen Devices in Use Now: None Appearance: Pleaseant elderly ivorian gentileman Eyes: - - Post surgical pupils non-reactive Ears/Nose/Mouth/Throat: Clear Oropharnyx, Mucous Membranes Moist - Previous dental fillings Neck: - - Bruit heard on the right carotid. Respiratory: Clear to Auscultation Cardiovascular: NL Sounds; No Murmurs; No JVD, - - Irregular Abdominal: NL Sounds; No Tenderness; No Distention, No Hepatosplenomegaly Extremities: No Edema Skin: No Rash or Ulcers Neurological: Alert and Oriented x 3 Nutrition: Taking PO's Result Diagrams: 03/11/19 13:37 03/11/19 17:35 Diagnostic Imaging: Chest X-RAY Radiologist IMPRESSION: NO ACTIVE CARDIOPULMONARY DISEASE IS NOTED. CTA Neck and Thorax Radiologist IMPRESSION: Bilateral occluded carotid arteries as described. Supply of the anterior circulation at. the [place] by the posterior circulation via prominent posterior communicating. arteries. #. Negative for dissection or aneurysm of the thoracic aorta. #. Negative for pulmonary embolism. EKG Data: EKG Atrial fibrillation at a rate of 85 bpm. J-point elevation noted in anterior leads however these were present in old EKG from Sep 2017. Assess/Plan/Problems-Billing Assessment: 78yoM with A. Fib, HTN, Dyslipidemia, Diabetes here due to generalized weakness and chest pain. Initially had low BP which became severely elevated. Also noted to have incidental finding of elevated WBC/Creatinine and bilateral carotid occlusion but review of the chart suggest this was a chronic issue. - Patient Problems (1) Chest pain Current Visit: Yes Status: Acute Code(s): R07.9 - CHEST PAIN, UNSPECIFIED SNOMED Code(s): 04149045 Comment: Will get serial Cardiac enzymes. ECHO. Will consider cardiology consult to see if Stress testing is viable given his age. (2) Acute kidney injury Current Visit: Yes Status: Acute Code(s): N17.9 - ACUTE KIDNEY FAILURE, UNSPECIFIED SNOMED Code(s): 20823648 Comment: Could be dehydration vs multiple medication. Will hold BP meds. Start radha hydration especially given all the Contrast enhanced CT he had today. (3) Elevated WBC count Current Visit: Yes Status: Acute Code(s): D72.829 - ELEVATED WHITE BLOOD CELL COUNT, UNSPECIFIED SNOMED Code(s): 532373776 Comment: No obvious source of sepsis. Follow up UA and blood cultures. Could be hemoconcentration due to dehydration. (4) Generalized weakness Current Visit: Yes Status: Acute Code(s): R53.1 - WEAKNESS SNOMED Code(s) : 84528126 Comment: I suspect component of dehydration as the initial cause. Will get PT evaluation however I noticed his gait was normal in ER with some assistance required due to his blindness. (5) HTN (hypertension) Current Visit: No Status: Acute Code(s): I10 - ESSENTIAL (PRIMARY) HYPERTENSION SNOMED Code(s): 27819453 Comment: Continue diltiazem, metoprolol. Add hydralazine. Other Diuretics and BUSHRA inhibitors held due to elevated creatinine and recent contrast use. Will consider imdur if BP remains elevated. (6) Carotid art occ w/o infarc Current Visit: Yes Status: Acute Code(s): I65.29 - OCCLUSION AND STENOSIS OF UNSPECIFIED CAROTID ARTERY SNOMED Code(s): 324631753 Comment: Will order carotid dopplers but likely a chornic problem. Consult Neurology to see if anything acute needs to be done. (7) Atrial fibrillation Current Visit: No Status: Acute Code(s): I48.91 - UNSPECIFIED ATRIAL FIBRILLATION SNOMED Code(s): 64692877 Comment: Continue Eliquis. Diltiazem and Metoprolol (8) Diabetes Current Visit: No Status: Acute Code(s): E11.9 - TYPE 2 DIABETES MELLITUS WITHOUT COMPLICATIONS SNOMED Code(s): 87012977 Comment: Check A1c. Hold PO meds during this admission. Continue Insuling by SS. (9) DVT prophylaxis Current Visit: Yes Status: Acute Code(s): Z29.9 - ENCOUNTER FOR PROPHYLACTIC MEASURES, UNSPECIFIED SNOMED Code(s): 698247183 Comment: On eliquis. Allergies/Medications Medication: Atorvastatin* [Lipitor 80 MG*] 80 mg PO DAILY 01/19/15 [History Confirmed ] Metoprolol Succinate XL TAB* [Toprol XL TAB*] 50 mg PO DAILY 01/19/15 [History Confirmed 03/11/19] Nitroglycerin TAB 0.4 MG* 0.4 mg SL Q5M PRN 01/19/15 [History Confirmed 03/11/19 ] Timolol 0.5% OPTH.HANNAH* [Timoptic 0.5% Opth*] 1 drop BOTH EYES DAILY 01/19/15 [ History Confirmed 03/11/19] Apixaban* [Eliquis*] 5 mg PO BID #30 tab 07/25/16 [Rx Confirmed 03/11/19] Azelastine HCl [Azelastine Hydrochloride] 0.1 % BOTH NARES BID 03/11/19 [ History Confirmed 03/11/19] Ciclopirox Olamine [Ciclopirox] 0.77 % TOPICAL BID 03/11/19 [History Confirmed 03/11/19] Furosemide TAB* [Lasix TAB*] 20 mg PO DAILY 03/11/19 [History Confirmed 03/11/19 ] Losartan TAB* [Cozaar TAB*] 100 mg PO DAILY 03/11/19 [History Confirmed 03/11/19 ] Mirtazapine TAB* [Remeron TAB*] 7.5 mg PO BEDTIME 03/11/19 [History Confirmed ] Spironolactone/HCTZ 25-25 MG* [Aldactazide 25-25*] 1 tab PO DAILY 03/11/19 [ History Confirmed 03/11/19] dilTIAZem HCl [Diltiazem 24Hr ER] 240 mg PO DAILY 03/11/19 [History Confirmed ] glipiZIDE TAB.XL* [Glucotrol XL*] 2.5 mg PO DAILY 03/11/19 [History Confirmed ] Allergies/Adverse Reactions: Allergies Allergy/AdvReac Type Severity Reaction Status Date / Time No Known Allergies Allergy Verified 01/20/15 12:29
[2019-03-11] MEDS ORDERED: Nitroglycerin TAB 0.4 MG* 0.4 MG TAB SL PRN (21:05)
[2019-03-11 21:13] LABS: Urine Appearance Clear; Urine Bilirubin Negative (Negative); Urine Blood Negative (Negative); Urine Color Yellow; Urine Glucose Negative (Negative); Urine Ketones Trace (Negative); Urine Nitrite Negative (Negative); Urine Protein Negative (Negative); Urine Specific Gravity > 1.060 (1.010-1.030); Urine Urobilinogen Negative (Negative)
[2019-03-11] MEDS ORDERED: Insulin LISPRO* 1 UNITS UNIT SUBCUT PRN (21:20)
[2019-03-11] MEDS ORDERED: Dextrose 50% Syringe 50 ML* 25 GM/50 ML SYRINGE IV PUSH PRN (21:20)
[2019-03-11 21:46] LABS: Albumin 4.2 g/dL (3.2-5.2); Albumin/Globulin Ratio 1.4 (1-3); BUN/Creatinine Ratio 19.4 (8-20); Calcium 9.9 mg/dL (8.6-10.3); EGFR African American 59.5 (>60); EGFR Non-African American 49.2 (>60); Globulin 2.9 g/dL (2-4); Total Protein 7.1 g/dL (6.4-8.9)
[2019-03-11] MEDS: Diltiazem CD CAP* 240 MG PO SCH (22:29)
[2019-03-11] MEDS: Metoprolol Succinate XL TAB* 50 MG PO SCH (22:30)
[2019-03-11] MEDS: NS 0.9% 1000 ML** 1,000 ML IV SCH (22:39)
[2019-03-11] MEDS: Apixaban* 2.5 MG TAB PO SCH (23:20)
[2019-03-11] MEDS: hydrALAZINE TAB* 100 MG ** ONE HUNDRED PO SCH (23:20)
[2019-03-12 00:01] LABS: Troponin I 0.03 ng/mL (<0.04)
[2019-03-12 03:42] LABS: Hematocrit 43 % (42-52); Hemoglobin 14.4 g/dL (14.0-18.0); Mean Corpuscular HGB Conc 34 g/dL (31-36); Mean Corpuscular Hemoglobin 32 pg (27-31); Mean Corpuscular Volume 96 fL (80-94); Mean Platelet Volume 9.1 fL (7.4-10.4); Platelet Count 202 10^3/uL (150-450); Red Blood Count 4.47 10^6 /uL (4.18-5.48); Red Cell Distribution Width 14 % (10-15); White Blood Count 14.3 10^3/uL (3.5-10.8)
[2019-03-12 03:59] LABS: HDL Cholesterol 32.6 mg/dL
[2019-03-12 04:01] LABS: Troponin I 0.03 ng/mL (<0.04)
[2019-03-12 04:22] LABS: TSH (Thyroid Stimulating Horm) 2.02 mcIU/mL (0.34-5.60)
[2019-03-12 05:33] LABS: ABS Basophils 0.1 10^3/ul (0-0.2); ABS Eosinophils 0.1 10^3/ul (0-0.6); ABS Lymphocytes 1.1 10^3/ul (1.0-4.8); ABS Monocytes 0.8 10^3/ul (0-0.8); ABS Neutrophils 12.2 10^3/ul (1.5-7.7); Eosinophil % 0.4 %; Lymphocyte % 7.8 %; Nucleated Red Blood Cells % 0.1
[2019-03-12] MEDS: Diltiazem CD CAP* 240 MG PO SCH (08:44)
[2019-03-12] MEDS: Metoprolol Succinate XL TAB* 50 MG PO SCH (08:44)
[2019-03-12] MEDS: Apixaban* 2.5 MG TAB PO SCH ×2 (08:44→20:20)
[2019-03-12] MEDS: hydrALAZINE TAB* 100 MG ** ONE HUNDRED PO SCH (08:44)
[2019-03-12] MEDS: Atorvastatin* 80 MG TAB PO SCH (08:44)
[2019-03-12] MEDS: Timolol 0.5% OPTH.SOL* BTL BOTH EYES SCH (12:02)
[2019-03-12] MEDS: NS 0.9% 1000 ML** 1,000 ML IV SCH (12:02)
--- NOTE | 2019-03-12 13:27 | ECHO ---
*[facility]* [place] [address] Fax #: [phone] Transthoracic Echocardiogram Patient: Timbo Bishop : 1940 Study Date: 03/12/2019 Age: 78 Gender: M HR: 86 bpm Height: 65 in /165.1 cm BSA: 1.69 m^2 Weight: 138.7 lb /63.1 kg BMI: 23.1 kg/m^2 *Model Maker Plaster: * Judy Hoskins [facility] *Referring Physician: * Nawaf Romero *Reading Physician: * Irina Rain MD Indications: Atrial Fibrillation. Chest Pain, unspecified. History: PVD,OR in the past. Coronary artery disease. Risk factors: Diabetes mellitus. Conclusions Summary: 1. Left ventricle: There is focal basal hypertrophy of the septum. Systolic function is normal. The estimated ejection fraction is 55-60%. 2. Right ventricle: Systolic function is normal. 3. Mitral valve: There is mild regurgitation. 4. Tricuspid valve: There is mild regurgitation. 5. Pulmonary arteries: The peak pressure during systole by Doppler is 32.0 mm Hg. 6. No prior echocardiogram to compare. Study data: Transthoracic echocardiogram. Procedure: Transthoracic echocardiography was performed. Image quality was good. Complete 2D, spectral Doppler, and color flow Doppler. Patient status: Inpatient. Patient room number: 449-2. Findings Left ventricle: The cavity size is normal. There is focal basal hypertrophy of the septum. Systolic function is normal. The estimated ejection fraction is 55-60%. Wall motion is normal; there are no regional wall motion abnormalities. Left ventricular diastolic function parameters are indeterminate. Right ventricle: Well visualized. The cavity size is normal. Wall thickness is normal. Systolic function is normal. Left atrium: Well visualized. The atrium is normal in size. Right atrium: Well visualized. The atrium is normal in size. Atrial septum: Well visualized. Mitral valve: Well visualized. The leaflets are moderately thickened. No echocardiographic evidence for prolapse. There is no evidence of stenosis. There is mild regurgitation. Aortic valve: Well visualized. The valve is trileaflet. The leaflets are mildly thickened. There is no evidence of stenosis. There is no significant regurgitation. Tricuspid valve: Well visualized. The leaflets are normal thickness. There is no evidence of stenosis. There is mild regurgitation. Pulmonic valve: Well visualized. The leaflets are normal thickness. There is no significant regurgitation. Aorta: The aorta is well visualized and normal size. Aortic arch: The aortic arch is appears normal. The aorta is normal. The aortic root is not dilated. Pericardium: There is no pericardial effusion. No evidence of pleural fluid accumulation. Pulmonary arteries: Well visualized. The main pulmonary artery is normal-sized. Systemic veins: Well visualized. Inferior vena cava: The respirophasic diameter changes are in the normal range (>= 50%). Pulmonary veins: Visualization of the pulmonary venous anatomy is incomplete, but a significant abnormality is unlikely. Measurements Left ventricle Value Ref Aortic valve Value Ref GEOVANY, LAX (L) 3.7 cm 4.2 - Bay diam, ED 1.8 cm ----- 5.8 Bay diam/bsa, ED 1.1 cm/m^2 ----- ESD, LAX 2.5 cm 2.5 - Peak v, S 0.92 m/sec ----- 4.0 VTI, S 9.8 cm ----- FS, LAX 33 % 25 - 43 Mean grad, S 0.0 mm Hg ----- PW, ED, LAX 1.0 cm 0.6 - Peak grad, S 3.0 mm Hg ----- 1.0 LVOT/AV, VTI ratio 0.96 ----- FS 33 % 25 - 43 PW, ED 1.0 cm 0.6 - Mitral valve Value Ref 1.0 Peak E 1.18 m/sec ----- PW/ID, ED 0.28 -------- Decel time 169 ms ----- E', lat bay, TDI (L) 7.6 cm/sec >=10.0 Peak grad, D 5.6 mm Hg -- --- E/e', lat bay, TDI 16 -------- E', med bay, TDI 12.2 cm/sec >=7.0 Pulmonic valve Value Re f E/e', med bay, TDI 10 -------- Peak v, S 0.67 m/sec ----- E', avg, TDI 9.9 cm/sec -------- Peak grad, S 2.0 mm Hg ----- E/e', avg, TDI 12 <=14 Tricuspid valve Value Ref LVOT Value Ref TR peak v 2.8 m/sec <=2.8 Peak carlos, S 0.36 m/sec -------- Peak RV-RA grad, S 31 mm Hg ----- VTI, S 9.4 cm -------- Max TR carlos 2.64 m/sec ----- Mean grad, S 0 mm Hg -------- Aortic root Value Ref Ventricular septum Value Ref Root diam 3.5 cm <3.9 IVS, ED 1.0 cm 0.6 - Root max diam, ED 3.5 cm <3.9 1.0 Aortic arch Value Ref Right ventricle Value Ref Arch diam 2.2 cm ----- GEOVANY, LAX 2.7 cm -------- GEOVANY minor ax, A4C 2.7 cm 1.9 - Decending aorta Value Ref mid 3.5 Wayne peak carlos 0.29 m/sec ----- Pressure, S 34 mm Hg -------- Pulmonary artery Value Ref Left atrium Value Ref Pressure, S 32.0 mm Hg ----- ML dim, A4C 3.6 cm -------- SI dim, A4C 4.7 cm -------- Inferior vena cava Value Ref Diam 1.7 cm ----- Right atrium Value Ref SI dim, ES 4.1 cm 3.4 - 5.3 ML dim, ES, A4C 4.2 cm 2.6 - 4.4 SI dim, ES, A4C 4.1 cm 3.4 - 5.3 SI dim/bsa, ES, A4C 2.4 cm/m^2 1.8 - 3.0 Estimated RAP 3 mm Hg -------- Legend: (L) and (H) tej values outside specified reference range. Prepared and electronically signed by Irina Rain MD 03/12/2019 13:27
--- NOTE | 2019-03-12 18:02 | PN ---
<Gabreila Taveras - Last Filed: 03/12/19 17:57> Subjective Date of Service: 03/12/19 Interval History: Patient history was collected from his family members as he cannot understand and speak malay and respiratory therapy assistant was not working properly. Patient presented in ED with c/c weakness, sweating, chest pain, neck pain and feeling of passing out but didnot pass out. Now he doesnot have any complain and he feels good. Objective Active Medications: Apixaban (Eliquis*) 2.5 mg PO BID [facility] Last Admin: 03/12/19 08:44 Dose: 2.5 mg Atorvastatin Calcium (Lipitor*) 80 mg PO DAILY [facility] Last Admin: 03/12/19 08:44 Dose: 80 mg Dextrose (D50w Syringe 50 Ml*) 12.5 gm IV PUSH .FOR FS < 60 - SS PRN PRN Reason: FS < 60 Diltiazem HCl (Cardizem Cd Cap*) 240 mg PO DAILY [facility] Last Admin: 03/12/19 08:44 Dose: 240 mg Glipizide (Glucotrol Xl*) 2.5 mg PO DAILY WITH MEAL [facility] Sodium Chloride (Ns 0.9% 1000 Ml) 1,000 mls @ 100 mls/hr IV PER RATE [facility] Last Admin: 03/12/19 12:02 Dose: 100 mls/hr Losartan Potassium (Cozaar Tab*) 100 mg PO DAILY [facility] Metoprolol Succinate (Toprol Xl Tab*) 50 mg PO DAILY [facility] Last Admin: 03/12/19 08:44 Dose: 50 mg Mirtazapine (Remeron Tab*) 7.5 mg PO BEDTIME [facility] Nitroglycerin (Nitroglycerin Tab 0.4 Mg*) 0.4 mg SL Q5M PRN PRN Reason: PAIN - CHEST (Azelastine Hcl [ Azelastine Hcl] 0.1 %) 0.1 % BOTH NARES BID [facility] Last Admin: 03/12/19 10:44 Dose: Not Given (Ciclopirox Olamine ([Ciclopirox] 0.77 %)) 0.77 % TOPICAL BID [facility] Last Admin: 03/12/19 10:44 Dose: Not Given Spironolactone (Aldactone Tab*) 25 mg PO DAILY [facility] Timolol Maleate (Timoptic 0.5% Opth*) 1 drop BOTH EYES DAILY [facility] Last Admin: 03/12/19 12:02 Dose: 1 drop Vital Signs - 8 hr 03/12/19 11:15 Temperature 97.9 F Pulse Rate 77 Respiratory 19 Rate Blood Pressure 181/94 (mmHg) O2 Sat by Pulse 95 Oximetry Oxygen Devices in Use Now: None Exam: Patient is not in any distress. He was looking well. Vision: unsble to see. Only localises sound. Neurological exam is normal. No any motor weakness or sensory deficiet. Chest; No murmur. irregular. Result Diagrams: 03/12/19 03:35 03/11/19 21:23 Diagnostic Imaging: Chest X-RAY Radiologist IMPRESSION: NO ACTIVE CARDIOPULMONARY DISEASE IS NOTED. CTA Neck and Thorax Radiologist IMPRESSION: Bilateral occluded carotid arteries as described. Supply of the anterior circulation at. the [place] by the posterior circulation via prominent posterior communicating. arteries. #. Negative for dissection or aneurysm of the thoracic aorta. #. Negative for pulmonary embolism. EKG Data: EKG Atrial fibrillation at a rate of 85 bpm. J-point elevation noted in anterior leads however these were present in old EKG from Sep 2017. Assess/Plan/Problems-Billing Assessment: 78yo M with PMH of CAD, A. Fib, HTN, Dyslipidemia, Diabetes here due to generalized weakness, sweating, neck pain and chest pain. Initially had low BP which became elevated. Also noted to have incidental finding of elevated WBC/ Creatininine. CTA Neck shows b/l carotid bruits. EKG showed irregular rhythm and echo was normal with EF of 55-60%. Crdiac enzymes were normal. - Patient Problems (1) Carotid artery occlusion Current Visit: Yes Status: Acute Comment: B/L carotid artery occlusion with no any focal neurological deficit. Neurology consulted and may proceed with medical mangaement. (2) Acute kidney injury Current Visit: Yes Status: Acute Code(s): N17.9 - ACUTE KIDNEY FAILURE, UNSPECIFIED SNOMED Code(s): 48127632 Comment: May be due to sudden drop in BP or due to contrast used during CT. IV fluids given and monitor his BMP. (3) Atrial fibrillation Current Visit: No Status: Acute Code(s): I48.91 - UNSPECIFIED ATRIAL FIBRILLATION SNOMED Code(s): 40882839 Comment: Continue his home medication( eliquis, metoprolol, diltiazem). (4) Diabetes Current Visit: No Status: Acute Code(s): E11.9 - TYPE 2 DIABETES MELLITUS WITHOUT COMPLICATIONS SNOMED Code(s): 54465628 Comment: Patient is on glipizide 2.5 mg daily. His blood glucose is around 160. Dose adjustment needed. (5) Chest pain Current Visit: Yes Status: Acute Code(s): R07.9 - CHEST PAIN, UNSPECIFIED SNOMED Code(s): 45323668 Comment: Troponin is normal. No ischemic change seen in EKG and ECHO. (6) HTN (hypertension) Current Visit: No Status: Acute Code(s): I10 - ESSENTIAL (PRIMARY) HYPERTENSION SNOMED Code(s): 65915980 Comment: His BP is in 180/94. Aggresive reduction of BP to be acoided as it may lead to hypoperfusion. Continue diltiazem and metoprolol. (7) DVT prophylaxis Current Visit: Yes Status: Acute Code(s): Z29.9 - ENCOUNTER FOR PROPHYLACTIC MEASURES, UNSPECIFIED SNOMED Code(s): 406463454 Comment: On eliquis. Status and Disposition: Medicine, Inpatient. <Amado Zafar - Last Filed: 03/12/19 18:59> Objective Active Medications: Apixaban (Eliquis*) 2.5 mg PO BID [facility] Last Admin: 03/12/19 08:44 Dose: 2.5 mg Atorvastatin Calcium (Lipitor*) 80 mg PO DAILY [facility] Last Admin: 03/12/19 08:44 Dose: 80 mg Dextrose (D50w Syringe 50 Ml*) 12.5 gm IV PUSH .FOR FS < 60 - SS PRN PRN Reason: FS < 60 Diltiazem HCl (Cardizem Cd Cap*) 240 mg PO DAILY [facility] Last Admin: 03/12/19 08:44 Dose: 240 mg Glipizide (Glucotrol Xl*) 2.5 mg PO DAILY WITH MEAL [facility] Sodium Chloride (Ns 0.9% 1000 Ml) 1,000 mls @ 100 mls/hr IV PER RATE [facility] Last Admin: 03/12/19 12:02 Dose: 100 mls/hr Losartan Potassium (Cozaar Tab*) 100 mg PO DAILY [facility] Metoprolol Succinate (Toprol Xl Tab*) 50 mg PO DAILY [facility] Last Admin: 03/12/19 08:44 Dose: 50 mg Mirtazapine (Remeron Tab*) 7.5 mg PO BEDTIME [facility] Nitroglycerin (Nitroglycerin Tab 0.4 Mg*) 0.4 mg SL Q5M PRN PRN Reason: PAIN - CHEST (Azelastine Hcl [ Azelastine Hcl] 0.1 %) 0.1 % BOTH NARES BID [facility] Last Admin: 03/12/19 10:44 Dose: Not Given (Ciclopirox Olamine ([Ciclopirox] 0.77 %)) 0.77 % TOPICAL BID [facility] Last Admin: 03/12/19 10:44 Dose: Not Given Spironolactone (Aldactone Tab*) 25 mg PO DAILY [facility] Timolol Maleate (Timoptic 0.5% Opth*) 1 drop BOTH EYES DAILY [facility] Last Admin: 03/12/19 12:02 Dose: 1 drop Vital Signs - 8 hr 03/12/19 11:15 Temperature 97.9 F Pulse Rate 77 Respiratory 19 Rate Blood Pressure 181/94 (mmHg) O2 Sat by Pulse 95 Oximetry Result Diagrams: 03/12/19 03:35 03/11/19 21:23 Assess/Plan/Problems-Billing Difficulty with respiratory therapy assistant line today See Dr. Taveras's note for details of their interaction NAD op clear, mmm no JVD rrr, no mrg CTA b/l soft, NT/ND no focal neuro deficits 78 M p/w CP and pre syncope/weakness Chest pain - negative troponins, non ischemic EKG. Carotid artery stenosis -ED records reviewed and discussion with accepting hospitalist and ED physician confirm there was never a dissection -images sent to [facility] yesterday and discussed need for transfer to intervene on total occlusion. Not deemed necessary by [place] surgeon -will need follow up on transfer Leukocytosis - monitor off abx Near syncope - concern for hypoperfusion of brain in setting of hypotension. Medication management to allow permissive HTN. DM2 - glipizide TRISHA - fluids. Recheck in AM Attestation Documenting Resident: Nitin Supervising Physician: Andrade Attestation: This service has been performed in part by a resident under the direction of a teaching physician.Andrade Mcnamara, performed the service, or was physically present during the critical, or hayes portions of the service, furnished by the resident. I participated in the management of the patient.
[2019-03-12] MEDS ORDERED: Mirtazapine TAB* 15 MG PO SCH (21:00)
[2019-03-12] MEDS ORDERED: hydrALAZINE IV* 20 MG/ML VIAL IV SLOW PU ONE (22:00)
[2019-03-13] MEDS: NS 0.9% 1000 ML** 1,000 ML IV SCH (01:45)
[2019-03-13] MEDS ORDERED: hydrALAZINE IV* 20 MG/ML VIAL ONE (04:08)
[2019-03-13] MEDS ORDERED: hydrALAZINE IV* 20 MG/ML VIAL IV SLOW PU ONE (04:45)
[2019-03-13 07:52] LABS: Hematocrit 43 % (42-52); Hemoglobin 14.6 g/dL (14.0-18.0); Mean Corpuscular HGB Conc 34 g/dL (31-36); Mean Corpuscular Hemoglobin 33 pg (27-31); Mean Corpuscular Volume 97 fL (80-94); Mean Platelet Volume 9.1 fL (7.4-10.4); Platelet Count 183 10^3/uL (150-450); Red Blood Count 4.47 10^6 /uL (4.18-5.48); Red Cell Distribution Width 14 % (10-15)
[2019-03-13 08:29] LABS: Calcium 9.2 mg/dL (8.6-10.3); EGFR African American 82.2 (>60); Potassium 3.7 mmol/L (3.5-5.0)
[2019-03-13] MEDS ORDERED: glipiZIDE TAB.XL* 2.5 MG PO SCH (08:30)
[2019-03-13] MEDS ORDERED: Spironolactone TAB* 25 MG PO SCH (09:00)
[2019-03-13] MEDS ORDERED: Losartan TAB* 25 MG PO SCH (09:00)
[2019-03-13] MEDS ORDERED: Hydrochlorothiazide TAB* 25 MG PO SCH (09:13)
[2019-03-13] MEDS: Metoprolol Succinate XL TAB* 50 MG PO SCH (10:04)
[2019-03-13] MEDS: Diltiazem CD CAP* 240 MG PO SCH (10:04)
[2019-03-13] MEDS: Apixaban* 2.5 MG TAB PO SCH (10:05)
[2019-03-13] MEDS: Atorvastatin* 80 MG TAB PO SCH (10:07)
[2019-03-13] MEDS: Timolol 0.5% OPTH.SOL* BTL BOTH EYES SCH (10:11)
[2019-03-13 13:53] VITALS: BP 177/73
--- NOTE | 2019-03-13 19:33 | DS ---
Resident Discharge Summary Discharge Summary: Date of Admission: 03/11/19 Date of Discharge: 03/13/19 Admitting MD: Nawaf Romero MD Attending MD: Nawaf Romero MD Primary Care Physician: Coy Forrester MD Home Medications Medication Instructions Recorded Confirmed Type Atorvastatin* [Lipitor 80 MG*] 80 mg PO DAILY 01/19/15 03/11/19 History Metoprolol Succinate XL TAB* 50 mg PO DAILY 01/19/15 03/11/19 History [Toprol XL TAB*] Nitroglycerin TAB 0.4 MG* 0.4 mg SL Q5M PRN 01/19/15 03/11/19 History Timolol 0.5% OPTH.HANNAH* [Timoptic 1 drop BOTH EYES DAILY 01/19/15 03/11/19 History 0.5% Opth*] Apixaban* [Eliquis*] 5 mg PO BID #30 tab 07/25/16 03/11/19 Rx Azelastine HCl 0.1 % BOTH NARES BID 03/11/19 03/11/19 History Ciclopirox Olamine [Ciclopirox] 0.77 % TOPICAL BID 03/11/19 03/11/19 History Losartan TAB* [Cozaar TAB*] 100 mg PO DAILY 03/11/19 03/11/19 History Mirtazapine TAB* [Remeron TAB*] 7.5 mg PO BEDTIME 03/11/19 03/11/19 History Spironolactone/HCTZ 25-25 MG* 1 tab PO DAILY 03/11/19 03/11/19 History [Aldactazide 25-25*] dilTIAZem HCl [Diltiazem 24Hr ER 240 mg PO DAILY 03/11/19 03/11/19 History (Cd)] glipiZIDE TAB.XL* [Glucotrol Xl*] 2.5 mg PO DAILY 03/11/19 03/11/19 History 78 y/o M PMH of HTN, Diabetes, A fibrillation, HLD, CAD presented with c/o generalised weakness, chest pain and sweating. Patient admitted with diagnosis of B/L carotid artery stenosis. Disposition: home Condition: Stable and ambulatory Primary Diagnosis: B/L Carotid Occlusion. Secondary Diagnosis: Hypertension Diabetes Atrial fibrillation Diagnostic Imaging: CTA Head, neck and chest: B/l CAROTID ARTERY OCCLUSION USG neck doppler: complete occlusion of b/o carotid artery Echo: Normal EF and No RWMA. Pertinent Laboratory Results: TROPONIN WAS NEGATIVE. CREATININE WAS 1.05 HBA1C WAS 7. Hospital Course: Patient presented in emergency where is Blood pressure was very low. Later there was HTN.His creatinine was high upto 1.66 but now it is 1.05. Follow Up Instructions: In case of an emergency or after clinic hours, please go to your nearest Emergency Department. You may also call the [facility] cafeteria operator at ( [phone]. F/U with Neurosurgeon in 1 week. F/U with PCP in 1 week.
--- NOTE | 2019-03-13 22:54 | DS ---
CC: Dr. Benny Jorgensen.* DISCHARGE SUMMARY: DATE OF ADMISSION: 03/11/19 DATE OF DISCHARGE: 03/13/19 PRIMARY CARE PROVIDER: Dr. Benny Jorgensen. CONDITION ON DISCHARGE: Good. DISPOSITION ON DISCHARGE: Home. PRIMARY DIAGNOSES: 1. Bilateral carotid artery stenosis. 2. Leukocytosis. 3. Neck pain. 4. Acute kidney injury. SECONDARY DIAGNOSES: Include: 1. Atrial fibrillation. 2. Diabetes. 3. Hypercholesterolemia. 4. Coronary artery disease. 5. Peripheral vascular disease. 6. Hypertension. 7. Dysphagia. 8. Legally blind. MEDICATIONS ON DISCHARGE: Include: 1. Timolol both eyes daily. 2. Spironolactone/hydrochlorothiazide 25/25 mg daily. 3. Nitroglycerin 0.4 mg every 5 minutes as needed. 4. Mirtazapine 7.5 mg at bedtime. 5. Glipizide XL 2.5 mg daily. 6. Metoprolol succinate 50 mg daily. 7. Losartan 100 mg daily. 8. Diltiazem 240 mg daily. 9. Apixaban 5 mg twice daily. 10. Ciclopirox 0.77 topical twice daily. 11. Azelastine 0.1% both nares daily. 12. Lipitor 80 mg daily. Please note the discontinuation of Lasix. PERTINENT IMAGING IN THE COURSE OF THE HOSPITAL STAY: CTA chest and thorax, impression: Bilateral occluded carotid arteries with supply of the anterior circulation at the [place] by the posterior circulation via prominent posterior communicating arteries. No dissection or aneurysm of thoracic aorta, negative for pulmonary embolism. Pertinent labs: white blood cell count on presentation 17.5, was 9.0 on discharge. Creatinine on presentation was 1.66, 1.0 on discharge, hemoglobin A1c is 7.0. HISTORY OF PRESENT ILLNESS AND HOSPITAL COURSE: An 78-year-old man with past medical history as outlined in the history of present illness, on the day of admission, presented to the hospital with weakness and presyncopal sensation associated with chest pain radiating to his neck, had serial negative troponins in the emergency room, noted to have bilateral carotid artery stenosis. This case was discussed with [place] after images were uploaded as indicated in the ER record. The patient was not thought to benefit from transfer of his care for intervention of carotid arteries. This was thought to be chronic in nature. The patient was hydrated in the hospital. Leukocytosis resolved as well as . His symptomatology was thought to be in the setting of dehydration causing hypotension and ultimately possibly cerebral hyperperfusion in the setting of hypotension. His Lasix was discontinued in the setting of dehydration, possibly contributing to the above. At followup, please: 1. Evaluate for additional need of Lasix and/or blood pressure medications. 2. Referral to neurovascular surgeon for evaluation of intervention on bilaterally occluded carotid arteries. 3. No other specific labs or vitals that need followup. Reasons to return to the hospital including but not limited to recurrent or worsening symptoms of chest pain, shortness of breath, nausea, vomiting, lightheadedness, loss of consciousness, near loss of consciousness, neurological symptoms, inability to obtain or tolerate medications discussed with the patient and his . All discussions with family were conducted with medical transcription radiology. [id number] #: [id number] MADDY
== END 2019-03-13 16:40 | disposition home or self-care (01) | DRG 68 ==
LOC: ED 11:19 → MEDTELE 21:10
PROVIDERS: ADMIT Internal Medicine; ATTEND Internal Medicine
DX: I65.23 Occlusion and stenosis of bilateral carotid arteries (principal); N17.9 Acute kidney failure, unspecified; I48.91 Unspecified atrial fibrillation; E11.42 Type 2 diabetes mellitus with diabetic polyneuropathy; E78.00 Pure hypercholesterolemia, unspecified; D72.829 Elevated white blood cell count, unspecified; I25.10 Atherosclerotic heart disease of native coronary artery without angina pectoris; M54.2 Cervicalgia; I10 Essential (primary) hypertension; R13.10 Dysphagia, unspecified; H54.8 Legal blindness, as defined in USA; E78.5 Hyperlipidemia, unspecified; I25.2 Old myocardial infarction; Z79.01 Long term (current) use of anticoagulants; Z79.84 Long term (current) use of oral hypoglycemic drugs; Z79.899 Other long term (current) drug therapy
CPT/HCPCS: 36415; 70498; 71045; 71275; 80048; 80053; 80061; 81003; 83036; 83605; 84443; 84484; 85025; 85027; 85060; 85379; 87040; 93005; 93306; 93880; 99284; A9270-GY; G8978-GP-CH; G8979-GP-CH; G8980-GP-CH; J0360; Q9967

== ENCOUNTER 2022-04-05 21:07 | Inpatient (IN) ==
[2022-04-05 21:50] LABS: Hematocrit 45 % (42-52); Hemoglobin 14.3 g/dL (14.0-18.0); Mean Corpuscular HGB Conc 32 g/dL (31-36); Mean Corpuscular Hemoglobin 31 pg (27-31); Mean Corpuscular Volume 96 fL (80-94); Mean Platelet Volume 8.8 fL (7.4-10.4); Platelet Count 236 10^3/uL (150-450); Red Blood Count 4.67 10^6 /uL (4.18-5.48); Red Cell Distribution Width 15 % (10-15); White Blood Count 12.2 10^3/uL (3.5-10.8)
[2022-04-05 21:56] LABS: INR 1.58 (0.89-1.11)
[2022-04-05 22:14] LABS: High Sens Troponin Baseline 127 pg/mL (<20)
[2022-04-05 22:24] LABS: ABS Lymphocytes 0.5 10^3/ul (1.0-4.8); ABS Monocytes 0.6 10^3/ul (0-0.8); Eosinophil % 0.1 %; Lymphocyte % 4.3 %
[2022-04-05 22:25] LABS: ALT 14 U/L (7-52); Albumin 3.5 g/dL (3.2-5.2); Albumin/Globulin Ratio 1.3 (1-3); Alkaline Phosphatase 52 U/L (35-149); Blood Urea Nitrogen 33 mg/dL (6-24); CO2 Carbon Dioxide 22 mmol/L (22-32); Calcium 8.2 mg/dL (8.6-10.3); Chloride 105 mmol/L (101-111); Globulin 2.6 g/dL (2-4); Glucose 158 mg/dL (70-100); Sodium 136 mmol/L (135-145); Total Protein 6.1 g/dL (6.4-8.9); eGFR CKD-EPI 40.7 (>60)
[2022-04-05 22:47] LABS: Anion Gap 9 mmol/L (2-11)
[2022-04-05 23:19] LABS: High Sensitivity Troponin 1 Hr 128 pg/mL (<20)
[2022-04-05 23:31] LABS: Magnesium 1.8 mg/dL (1.9-2.7); Potassium Redraw 4.2 mmol/L (3.5-5.0)
[2022-04-06] MEDS: Heparin DRIP 25,000 UNITS BAG 25,000 UNITS/500 ML BAG IV SCH (00:25)
[2022-04-06] MEDS: Heparin 5000 UNITS/ML 1 mL VIAL IV SCH ×2 (00:28→12:21)
[2022-04-06] MEDS ORDERED: Dextrose 50% Syringe 50 ml 25 GM/50 ML SYRINGE IV PUSH PRN (02:28)
[2022-04-06 02:54] LABS: Cholesterol 155 mg/dL; HDL Cholesterol 30.7 mg/dL; LDL Cholesterol 106 mg/dL; Triglycerides 91 mg/dL
[2022-04-06 07:01] LABS: Hematocrit 45 % (42-52); Hemoglobin 15.7 g/dL (14.0-18.0); Mean Corpuscular HGB Conc 35 g/dL (31-36); Mean Corpuscular Hemoglobin 33 pg (27-31); Mean Corpuscular Volume 94 fL (80-94); Mean Platelet Volume 9.6 fL (7.4-10.4); Platelet Count 261 10^3/uL (150-450); Red Blood Count 4.75 10^6 /uL (4.18-5.48); Red Cell Distribution Width 15 % (10-15); White Blood Count 13.6 10^3/uL (3.5-10.8)
[2022-04-06 07:11] LABS: Blood Urea Nitrogen 37 mg/dL (6-24); CO2 Carbon Dioxide 26 mmol/L (22-32); Calcium 10.2 mg/dL (8.6-10.3); Chloride 99 mmol/L (101-111); Glucose 129 mg/dL (70-100); Sodium 136 mmol/L (135-145); eGFR CKD-EPI 38.2 (>60)
[2022-04-06] MEDS ORDERED: Spironolactone/HCTZ 25-25 mg PO SCH (09:00)
[2022-04-06 09:47] LABS: ABS Basophils 0.1 10^3/ul (0-0.2); ABS Lymphocytes 1.1 10^3/ul (1.0-4.8); ABS Monocytes 0.6 10^3/ul (0-0.8); ABS Neutrophils 11.8 10^3/ul (1.5-7.7); Eosinophil % 0.2 %; Lymphocyte % 7.8 %; RBC Morphology Normal (Normal)
[2022-04-06 10:07] LABS: Anion Gap 11 mmol/L (2-11)
[2022-04-06 12:37] LABS: Magnesium 1.8 mg/dL (1.9-2.7); Potassium Redraw 4.4 mmol/L (3.5-5.0)
[2022-04-06] MEDS ORDERED: Magnesium Sulfate 2 gm BAG 2 GM/50 ML BAG IVPB ONE (13:03)
[2022-04-06] MEDS ORDERED: Atropine 0.1 MG/ML 10 ml SYR (1 mg) ONE (15:50)
[2022-04-06] MEDS ORDERED: Atropine 1 MG/ML INJ 1 ML VIAL IV PUSH PRN (15:51)
[2022-04-06] MEDS ORDERED: Calcium Gluconate 4 GM in NS 0.9% 250 ml 250 ML IVPB ONE (15:55)
[2022-04-06] MEDS ORDERED: Atropine 0.1 MG/ML 10 ml SYR (1 mg) IV PUSH ONE (16:00)
[2022-04-06] MEDS ORDERED: Norepinephrine 16MCG/ML BAGD5W 4,000 MCG/250 ML BAG IV ONE (16:19)
[2022-04-06] MEDS: Calcium Gluconate 3 GM in NS 0.9% 250 ml 250 ML IV ONE ×2 (16:33→18:28)
[2022-04-06] MEDS ORDERED: Cefepime 2 GM in Dextrose 2 GM/50 ML BAG IV SCH (17:00)
[2022-04-06] MEDS: NORMOSOL-R pH 7.4 1000 mL BAG 1,000 ML IV SCH (17:00)
[2022-04-06 17:28] LABS: Uric Acid 8.5 mg/dL (4.4-7.6)
[2022-04-06] MEDS: Cefepime 2 GM in Dextrose 2 GM/50 ML BAG IV SCH (17:55)
[2022-04-07] MEDS: NORMOSOL-R pH 7.4 1000 mL BAG 1,000 ML IV SCH (02:48)
[2022-04-07 03:31] LABS: Urine Creatinine Concentration 103.28 mg/dL
[2022-04-07 03:46] LABS: Urine Appearance Clear; Urine Bilirubin Negative (Negative); Urine Blood Negative (Negative); Urine Color Yellow; Urine Glucose Negative (Negative); Urine Ketones Trace (Negative); Urine Nitrite Negative (Negative); Urine Protein Negative (Negative); Urine Specific Gravity 1.025 (1.005-1.030); Urine Urobilinogen 0.2 (Negative) (Negative); Urine pH 5.5 (5.0-9.0)
[2022-04-07 06:22] LABS: Hematocrit 46 % (42-52); Hemoglobin 15.6 g/dL (14.0-18.0); Mean Corpuscular HGB Conc 34 g/dL (31-36); Mean Corpuscular Hemoglobin 33 pg (27-31); Mean Corpuscular Volume 95 fL (80-94); Mean Platelet Volume 9.8 fL (7.4-10.4); Platelet Count 251 10^3/uL (150-450); Red Blood Count 4.79 10^6 /uL (4.18-5.48); Red Cell Distribution Width 15 % (10-15); White Blood Count 13.2 10^3/uL (3.5-10.8)
[2022-04-07 07:13] LABS: Calcium 9.8 mg/dL (8.6-10.3); Magnesium 2.6 mg/dL (1.9-2.7); Phosphorus 3.7 mg/dL (2.5-5.0); eGFR CKD-EPI 32.9 (>60)
[2022-04-07 07:19] LABS: TSH Ultra Thyroid Stim Horm 2.38 mcIU/mL (0.34-5.60)
[2022-04-07 09:01] LABS: ABS Basophils 0.1 10^3/ul (0-0.2); ABS Eosinophils 0.1 10^3/ul (0-0.6); ABS Lymphocytes 0.8 10^3/ul (1.0-4.8); ABS Monocytes 0.5 10^3/ul (0-0.8); ABS Neutrophils 11.7 10^3/ul (1.5-7.7); Eosinophil % 0.4 %; Lymphocyte % 6.3 %
[2022-04-07] MEDS ORDERED: Regadenoson 0.4 MG/5 ML SYRINGE ONE (10:28)
[2022-04-07] MEDS ORDERED: Aminophylline 25 MG/ML VIAL ONE (10:28)
[2022-04-07] MEDS: Cefepime 2 GM in Dextrose 2 GM/50 ML BAG IV SCH (17:37)
[2022-04-07] MEDS: Heparin DRIP 25,000 UNITS BAG 25,000 UNITS/500 ML BAG IV SCH (18:49)
[2022-04-08 05:40] LABS: Hematocrit 42 % (42-52); Hemoglobin 14.3 g/dL (14.0-18.0); Mean Corpuscular HGB Conc 34 g/dL (31-36); Mean Corpuscular Hemoglobin 33 pg (27-31); Mean Corpuscular Volume 95 fL (80-94); Mean Platelet Volume 9.2 fL (7.4-10.4); Platelet Count 233 10^3/uL (150-450); Red Blood Count 4.39 10^6 /uL (4.18-5.48); Red Cell Distribution Width 15 % (10-15); White Blood Count 9.5 10^3/uL (3.5-10.8)
[2022-04-08 06:07] LABS: ABS Basophils 0.1 10^3/ul (0-0.2); ABS Eosinophils 0.1 10^3/ul (0-0.6); ABS Lymphocytes 0.9 10^3/ul (1.0-4.8); ABS Monocytes 0.5 10^3/ul (0-0.8); ABS Neutrophils 7.9 10^3/ul (1.5-7.7); Eosinophil % 1.2 %; Lymphocyte % 9.1 %; Nucleated Red Blood Cells % 0.1
[2022-04-08 06:24] LABS: Calcium 9.8 mg/dL (8.6-10.3); Phosphorus 3.3 mg/dL (2.5-5.0); Potassium 4.1 mmol/L (3.5-5.0); eGFR CKD-EPI 40.4 (>60)
[2022-04-08] MEDS: Cefepime 2 GM in Dextrose 2 GM/50 ML BAG IV SCH (17:27)
[2022-04-09 05:17] LABS: Hematocrit 40 % (42-52); Hemoglobin 13.3 g/dL (14.0-18.0); Mean Corpuscular HGB Conc 33 g/dL (31-36); Mean Corpuscular Hemoglobin 31 pg (27-31); Mean Corpuscular Volume 95 fL (80-94); Platelet Count 211 10^3/uL (150-450); Red Blood Count 4.24 10^6 /uL (4.18-5.48); Red Cell Distribution Width 15 % (10-15); White Blood Count 8.7 10^3/uL (3.5-10.8)
[2022-04-09 06:11] LABS: Calcium 9.4 mg/dL (8.6-10.3); Magnesium 1.8 mg/dL (1.9-2.7); eGFR CKD-EPI 50.3 (>60)
[2022-04-09 06:23] LABS: ABS Basophils 0.1 10^3/ul (0-0.2); ABS Eosinophils 0.1 10^3/ul (0-0.6); ABS Lymphocytes 0.8 10^3/ul (1.0-4.8); ABS Monocytes 0.5 10^3/ul (0-0.8); ABS Neutrophils 7.1 10^3/ul (1.5-7.7); Eosinophil % 1.3 %; Lymphocyte % 9.5 %
[2022-04-09 06:24] LABS: Acanthocytes 2+; Basophilic Stippling 1+
[2022-04-09] MEDS ORDERED: Magnesium Sulfate 2 gm BAG 2 GM/50 ML BAG IVPB ONE (07:59)
[2022-04-09 12:41] VITALS: BP 127/103
== END 2022-04-09 15:00 | disposition home or self-care (01) | DRG 311 ==
LOC: ED 21:07 → EDHOLD 23:48 → SUATTDRO 23:48 → ICU 04-06 01:51 → MEDTELE 04-06 09:29 → ICU 04-06 16:03
PROVIDERS: ADMIT Student in an Organized Health Care Education/Training Program; ATTEND Surgery Surgical Critical Care

== ENCOUNTER 2023-11-01 04:03 | Inpatient (IN) ==
[~2023-11-01 04:03] MED LIST: Rocuronium 50 mg VIAL 10 mg/ml 5 ml VIAL (50 mg) ONE; Succinylcholine 200 mg VIAL 20 mg/ml 10 ml VIAL (200 mg) ONE
[2023-11-01] MEDS: Etomidate 20 mg/10 ml 2 MG/ML 10 ml VIAL IV ONE (04:10)
[2023-11-01] MEDS: Succinylcholine 200 mg VIAL 20 mg/ml 10 ml VIAL (200 mg) IV ONE (04:10)
[2023-11-01] MEDS ORDERED: Propofol 10 mg/ml 100 ML BTL 1,000 MG/100 ML BTL ONE (04:12)
[2023-11-01] MEDS: Propofol 10 mg/ml 100 ML BTL 1,000 MG/100 ML BTL IV SCH (04:15)
[2023-11-01 04:37] LABS: Venous Bicarbonate HCO3 11.5 mmol/L (24-28)
[2023-11-01 04:39] LABS: Hematocrit 46.5 % (38-53); Hemoglobin 14.1 g/dL (13.2-16.3); Mean Corpuscular Hemoglobin 30.2 pg (27-33); Mean Corpuscular Hgb Conc 30.3 g/dL (31-36); Mean Corpuscular Volume 99.4 fL (80-97); Mean Platelet Volume 10.9 fL (7.5-11.2); Platelet Count 236 10^3/uL (150-450); Red Blood Count 4.68 10^6/uL (4.06-5.63); Red Cell Distribution Width 16.8 % (12-17); White Blood Count 29.7 10^3/uL (3.6-10.2)
[2023-11-01 04:43] LABS: INR 1.08 (0.83-1.13)
[2023-11-01] MEDS: Labetalol IV 5 MG/ML 20 ml VIAL IV PUSH ONE (04:44)
[2023-11-01] MEDS: Midazolam 5 mg/5 ml VIAL 1 mg/ml 5 ml VIAL (5 mg) IV SLOW PU ONE (04:48)
[2023-11-01] MEDS ORDERED: Atropine 0.1 MG/ML 10 ml SYR (1 mg) ONE ×2 (04:54→05:46)
[2023-11-01] MEDS ORDERED: EPINEPHrine SYR 0.1MG/ML 10 ml SYRINGE IV ONE (04:54)
[2023-11-01] MEDS ORDERED: Magnesium Sulfate 2 gm BAG 2 GM/50 ML ONE (04:54)
[2023-11-01] MEDS: Magnesium Sulfate 2 gm BAG 2 GM/50 ML BAG IVPB ONE (05:05)
[2023-11-01 05:07] LABS: High Sens Troponin Baseline 1697 pg/mL (<20)
[2023-11-01 05:30] LABS: ABS Basophils 0.3 10^3/uL (0.0-0.1); ABS Eosinophils 0.1 10^3/uL (0.0-0.5); ABS Lymphocytes 2.2 10^3/uL (1.0-4.8); ABS Monocytes 0.9 10^3/uL (0.0-1.1); ABS Neutrophils 26.3 10^3/uL (1.5-7.6); ABS Nucleated RBC 0.06 10^3/ul; Eosinophil % 0.2 %; Lymphocyte % 7.4 %; Nucleated Red Blood Cells % 0.2 %/100WBC (0.0-0.8)
[2023-11-01 05:31] LABS: RBC Morphology Normal (Normal)
[2023-11-01 05:33] LABS: ALT 31 U/L (7-52); Albumin 4.3 g/dL (3.2-5.2); Albumin/Globulin Ratio 1.5 (1-3); Alkaline Phosphatase 102 U/L (35-149); Anion Gap 17 mmol/L (2-16); Blood Urea Nitrogen 39 mg/dL (6-24); CO2 Carbon Dioxide 15 mmol/L (22-32); Calcium 9.4 mg/dL (8.6-10.3); Chloride 101 mmol/L (101-111); Creatinine, Serum 1.67 mg/dL (0.67-1.17); Globulin 2.9 g/dL (2-4); Glucose 485 mg/dL (70-100); Sodium 133 mmol/L (135-145); Total Bilirubin 0.6 mg/dL (0.2-1.0); Total Protein 7.2 g/dL (6.4-8.9); eGFR CKD-EPI 39.9 (>60)
[2023-11-01] MEDS ORDERED: Norepinephrine 4 MG/250mL D5W 4,000 MCG/250 ML BAG IV ONE (05:37)
[2023-11-01] MEDS: Norepinephrine 4 MG/250mL D5W 4,000 MCG/250 ML BAG IV SCH (05:40)
[2023-11-01] MEDS: EPINEPHrine 1 MG/ML MDV 5 MG in D5W 250 ml BAG 245 ML IV SCH (05:40)
[2023-11-01] MEDS ORDERED: Heparin DRIP 25,000 UNITS BAG 25,000 UNITS/250 ML BAG IV ONE (05:49)
[2023-11-01] MEDS: Heparin DRIP 25,000 UNITS BAG 25,000 UNITS/250 ML BAG IV SCH (05:57)
[2023-11-01] MEDS ORDERED: Heparin 5000 UNITS/ML 1 mL VIAL ONE (05:57)
[2023-11-01] MEDS: Heparin 5000 UNITS/ML 1 mL VIAL IV SCH (05:59)
[2023-11-01] MEDS ORDERED: Aspirin EC 81 mg TAB.EC (enteric coated) ONE (06:00)
[2023-11-01] MEDS ORDERED: Atropine 1 MG/ML INJ 1 ML VIAL IV PUSH PRN (06:16)
[2023-11-01 06:41] LABS: High Sensitivity Troponin 1 Hr 22782 pg/mL (<20)
[2023-11-01] MEDS ORDERED: Vancomycin per Pharmacy 1 EA NOTE FOLLOW UP SCH (07:00)
[2023-11-01 07:12] LABS: Hematocrit 44.9 % (38-53); Hemoglobin 13.7 g/dL (13.2-16.3); Mean Corpuscular Hemoglobin 29.7 pg (27-33); Mean Corpuscular Hgb Conc 30.4 g/dL (31-36); Mean Corpuscular Volume 97.6 fL (80-97); Platelet Count 200 10^3/uL (150-450); Red Cell Distribution Width 16.3 % (12-17); White Blood Count 28.6 10^3/uL (3.6-10.2)
[2023-11-01 07:51] LABS: PCO2 Arterial 29 mmHg (35-45); PO2 Arterial 97 mmHg (80-100)
[2023-11-01 07:59] LABS: Potassium Redraw 5.7 mmol/L (3.5-5.0)
[2023-11-01 08:07] LABS: Albumin 3.6 g/dL (3.2-5.2); Albumin/Globulin Ratio 1.5 (1-3); Creatinine, Serum 1.87 mg/dL (0.67-1.17); Globulin 2.4 g/dL (2-4); Potassium 5.7 mmol/L (3.5-5.0); Total Bilirubin 1.2 mg/dL (0.2-1.0); eGFR CKD-EPI 34.8 (>60)
[2023-11-01 08:30] LABS: ABS Basophils 0.1 10^3/uL (0.0-0.1); ABS Lymphocytes 0.7 10^3/uL (1.0-4.8); ABS Neutrophils 26.7 10^3/uL (1.5-7.6); ABS Nucleated RBC 0.04 10^3/ul; Eosinophil % 0.1 %; Lymphocyte % 2.5 %; Nucleated Red Blood Cells % 0.1 %/100WBC (0.0-0.8); RBC Morphology Normal (Normal)
[2023-11-01] MEDS ORDERED: Zosyn per Pharmacy NOTE FOLLOW UP SCH (09:00)
[2023-11-01 09:01] LABS: Magnesium 3.4 mg/dL (1.9-2.7); Phosphorus 7.1 mg/dL (2.5-5.0)
[2023-11-01] MEDS: cefTRIAXone 1 gm/50 mL D5W 1 GM/50 ML BAG IV SCH (09:15)
[2023-11-01] MEDS: Sodium Polystyrene ORAL.SUSP 15 GM/60 ML BTL PO ONE (09:39)
[2023-11-01] MEDS: Chlorhexidine MOUTHWASH 0.12% 15 ML UDC TOPICAL SCH (09:39)
[2023-11-01] MEDS: fentaNYL INFUSION 50 mcg/mL VL 2,500 MCG/50 ML VIAL IV SCH (09:41)
[2023-11-01] MEDS: Piperacillin/Tazobac 3.375 BAG 3.375 GM/100 ML BAG IV ONE (09:41)
[2023-11-01] MEDS: Pantoprazole VIAL 40 MG VIAL IV SCH (09:41)
[2023-11-01 10:02] LABS: Resp Rate 28
[2023-11-01 10:05] LABS: PCO2 Arterial 30 mmHg (35-45); PO2 Arterial 89 mmHg (80-100)
[2023-11-01] MEDS: Vancomycin 1,000 MG in NS 0.9% 250 ml 250 ML IVPB ONE (10:59)
[2023-11-01] MEDS: Sodium Bicarb 8.4% Vial 50 ML 150 MEQ in D5W 1000 ml BAG 850 ML IV SCH (12:05)
[2023-11-01 13:27] VITALS: BP 155/78
[2023-11-01 13:29] LABS: High Sensitivity Troponin 1 Hr > 24000 pg/mL (<20)
[2023-11-01 14:05] LABS: Anion Gap 25 mmol/L (2-16); Blood Urea Nitrogen 44 mg/dL (6-24); Calcium 8.2 mg/dL (8.6-10.3); Chloride 104 mmol/L (101-111); Creatinine, Serum 2.08 mg/dL (0.67-1.17); Glucose 357 mg/dL (70-100); Potassium 4.7 mmol/L (3.5-5.0); Sodium 136 mmol/L (135-145); eGFR CKD-EPI 30.6 (>60)
[2023-11-01 14:07] LABS: CO2 Carbon Dioxide 7 mmol/L (22-32)
[2023-11-01] MEDS: ZOSYN 3.375 GM Q8H per EXTENDED INFUSION IV SCH (14:50)
[2023-11-01] MEDS ORDERED: Sulfur Hexaflouride MICROSPHR 25 MG VIAL ONE (15:38)
[2023-11-01 18:27] LABS: Resp Rate 27
[2023-11-01 18:31] LABS: PCO2 Arterial 21 mmHg (35-45); PO2 Arterial 155 mmHg (80-100)
[2023-11-01] MEDS: fentaNYL 100 mcg/2 ml 50 MCG/ML VIAL IV SLOW PU PRN (22:39)
[2023-11-02 03:26] LABS: PCO2 Arterial 20 mmHg (35-45); PO2 Arterial 180 mmHg (80-100)
[2023-11-02 04:15] LABS: Hematocrit 40.7 % (38-53); Mean Corpuscular Hemoglobin 29.6 pg (27-33); Mean Corpuscular Hgb Conc 31.8 g/dL (31-36); Red Blood Count 4.38 10^6/uL (4.06-5.63); Red Cell Distribution Width 15.3 % (12-17); White Blood Count 28.1 10^3/uL (3.6-10.2)
[2023-11-02] MEDS: Vancomycin Random Level NOTE FOLLOW UP ONE (05:03)
[2023-11-02 05:16] LABS: Albumin 2.9 g/dL (3.2-5.2); Albumin/Globulin Ratio 1.7 (1-3); Calcium 7.4 mg/dL (8.6-10.3); Creatinine, Serum 2.69 mg/dL (0.67-1.17); Globulin 1.7 g/dL (2-4); Magnesium 2.3 mg/dL (1.9-2.7); Phosphorus 3.2 mg/dL (2.5-5.0); Potassium 3.7 mmol/L (3.5-5.0); Total Bilirubin 2.4 mg/dL (0.2-1.0); Total Protein 4.6 g/dL (6.4-8.9); Vancomycin Random 12.8 mcg/mL; eGFR CKD-EPI 22.5 (>60)
[2023-11-02 05:30] LABS: Giant Platelets Present; Mean Platelet Volume 11.1 fL (7.5-11.2); Platelet Count 100 10^3/uL (150-450)
[2023-11-02 05:34] LABS: ABS Basophils 0.1 10^3/uL (0.0-0.1); ABS Monocytes 0.2 10^3/uL (0.0-1.1); ABS Neutrophils 27.7 10^3/uL (1.5-7.6); ABS Nucleated RBC 0.03 10^3/ul; Eosinophil % 0.1 %; Lymphocyte % 3.4 %; Nucleated Red Blood Cells % 0.1 %/100WBC (0.0-0.8)
[2023-11-02] MEDS: Furosemide 40 mg/4 ml IV VIAL IV SLOW PU ONE (12:07)
[2023-11-02] MEDS: Vancomycin 500 MG in NS 0.9% 250 ML IVPB ONE (12:07)
[2023-11-02] MEDS: Dextrose 50% Syringe 50 ml 25 GM/50 ML SYRINGE IV PUSH PRN (12:20)
[2023-11-02] MEDS ORDERED: .Amiodarone 24HR ONLY IV Protocol Order Note IV ONE (12:32)
[2023-11-02] MEDS: Amiodarone 150 mg IVPREMIX 150 MG/100 ML BAG IV ONE (13:28)
[2023-11-02] MEDS: Furosemide 100 mg/10 ml IV 100 MG in NS 0.9% 100 ml BAG 90 ML IV SCH ×4 (13:28→22:41)
[2023-11-02 13:49] LABS: Anion Gap 24 mmol/L (2-16); Blood Urea Nitrogen 56 mg/dL (6-24); CO2 Carbon Dioxide 20 mmol/L (22-32); Calcium 7.3 mg/dL (8.6-10.3); Chloride 95 mmol/L (101-111); Creatinine, Serum 2.89 mg/dL (0.67-1.17); Glucose 51 mg/dL (70-100); Sodium 139 mmol/L (135-145); eGFR CKD-EPI 20.6 (>60)
[2023-11-02] MEDS: Amiodarone 360 MG IVPREMIX 360 MG/200 ML BAG IV SCH ×2 (13:55→20:00)
[2023-11-02 14:43] LABS: INR 2.8 (0.83-1.13)
[2023-11-02] MEDS: Propofol 10 mg/ml 100 ML BTL 1,000 MG/100 ML BTL IV SCH (15:44)
[2023-11-02] MEDS: fentaNYL INFUSION 50 mcg/mL VL 2,500 MCG/50 ML VIAL IV SCH (18:46)
[2023-11-02 18:59] LABS: Anion Gap 24 mmol/L (2-16); Blood Urea Nitrogen 58 mg/dL (6-24); CO2 Carbon Dioxide 13 mmol/L (22-32); Calcium 6.6 mg/dL (8.6-10.3); Chloride 97 mmol/L (101-111); Creatinine, Serum 3.01 mg/dL (0.67-1.17); Glucose 172 mg/dL (70-100); Sodium 134 mmol/L (135-145); eGFR CKD-EPI 19.7 (>60)
[2023-11-02 19:21] LABS: Potassium, Whole Blood 4.1 mmol/L (3.4-4.5)
[2023-11-03] MEDS: ZOSYN 3.375 GM Q12H per EXTENDED INFUSION IV SCH (00:45)
[2023-11-03] MEDS: Norepinephrine *QUAD STRENGTH* 16 mg/250 mL NS PREMIX (ICU ONLY) IV SCH (00:46)
[2023-11-03 00:49] LABS: Calcium 6.5 mg/dL (8.6-10.3); Creatinine, Serum 3.05 mg/dL (0.67-1.17); Potassium 3.8 mmol/L (3.5-5.0); eGFR CKD-EPI 19.3 (>60)
[2023-11-03] MEDS: Albumin Human 25% 25 GM/100 ML BTL IV ONE (02:36)
[2023-11-03] MEDS: Furosemide 100 mg/10 ml IV 100 MG in NS 0.9% 100 ml BAG 90 ML IV SCH ×5 (02:40→21:24)
[2023-11-03] MEDS: EPINEPHrine 1 MG/ML MDV 5 MG in D5W 250 ml BAG 245 ML IV SCH (02:45)
[2023-11-03 05:08] LABS: Hematocrit 37.2 % (38-53); Hemoglobin 11.7 g/dL (13.2-16.3); Mean Corpuscular Hemoglobin 29.7 pg (27-33); Mean Corpuscular Hgb Conc 31.4 g/dL (31-36); Mean Corpuscular Volume 94.7 fL (80-97); Red Blood Count 3.92 10^6/uL (4.06-5.63); Red Cell Distribution Width 15.9 % (12-17); White Blood Count 31.3 10^3/uL (3.6-10.2)
[2023-11-03 05:27] LABS: Calcium 6.6 mg/dL (8.6-10.3); Creatinine, Serum 3.11 mg/dL (0.67-1.17); Potassium 4.1 mmol/L (3.5-5.0); eGFR CKD-EPI 18.9 (>60)
[2023-11-03 05:46] LABS: Albumin 3.3 g/dL (3.2-5.2); Albumin/Globulin Ratio 2.1 (1-3); Globulin 1.6 g/dL (2-4); Phosphorus 6.5 mg/dL (2.5-5.0); Total Bilirubin 3.8 mg/dL (0.2-1.0); Total Protein 4.9 g/dL (6.4-8.9)
[2023-11-03 06:15] LABS: ABS Basophils 0.1 10^3/uL (0.0-0.1); ABS Eosinophils 0.5 10^3/uL (0.0-0.5); ABS Lymphocytes 0.7 10^3/uL (1.0-4.8); ABS Monocytes 0.5 10^3/uL (0.0-1.1); ABS Neutrophils 29.5 10^3/uL (1.5-7.6); ABS Nucleated RBC 0.14 10^3/ul; Acanthocytes 1+; Burr Cells 3+; Eosinophil % 1.5 %; Giant Platelets Present; Large Platelets Present; Lymphocyte % 2.3 %; Mean Platelet Volume 11.9 fL (7.5-11.2); Nucleated Red Blood Cells % 0.4 %/100WBC (0.0-0.8); Platelet Count 82 10^3/uL (150-450)
[2023-11-03] MEDS: Vancomycin Random Level NOTE FOLLOW UP ONE (09:21)
[2023-11-03 15:56] LABS: Calcium 6.2 mg/dL (8.6-10.3); Creatinine, Serum 3.64 mg/dL (0.67-1.17); Potassium 4.9 mmol/L (3.5-5.0); eGFR CKD-EPI 15.6 (>60)
[2023-11-03 16:01] LABS: Urine Appearance Extra Turbid; Urine Bilirubin Negative (Negative); Urine Blood 2+ (Negative); Urine Color Yellow; Urine Glucose 2+ (>=150 mg/dL) (Negative); Urine Ketones 1+ (Negative); Urine Nitrite Negative (Negative); Urine Protein 2+ (>=100 mg/dL) (Negative); Urine Specific Gravity 1.023 (1.002-1.030); Urine Urobilinogen Negative (Negative); Urine pH 5.5 (5.0-8.0)
[2023-11-03 16:14] LABS: Urine Bacteria Absent /HPF (Absent); Urine Red Blood Cell 2+(6-10/hpf) /HPF (0-Trace); Urine Squamous Epithelial Cell Present /HPF (Absent); Urine White Blood Cell Trace(0-5/hpf) /HPF (0-Trace)
[2023-11-03] MEDS: CALCIUM GLUCONATE 1GM/50ML NS 1 GM/50 ML BAG IV SCH (17:16)
[2023-11-04] MEDS: D5W IV SCH (01:32)
[2023-11-04] MEDS: EPINEPHRINE IV SCH (01:32)
[2023-11-04 05:07] LABS: ALT 4238 U/L (7-52); AST 5615 U/L (13-39); Albumin 2.4 g/dL (3.2-5.2); Albumin/Globulin Ratio 1.8 (1-3); Alkaline Phosphatase 356 U/L (35-149); Blood Urea Nitrogen 60 mg/dL (6-24); CO2 Carbon Dioxide < 7 mmol/L (22-32); Calcium 6.6 mg/dL (8.6-10.3); Chloride 91 mmol/L (101-111); Creatinine, Serum 3.88 mg/dL (0.67-1.17); Globulin 1.3 g/dL (2-4); Glucose 163 mg/dL (70-100); Magnesium 2.4 mg/dL (1.9-2.7); Phosphorus 12.4 mg/dL (2.5-5.0); Potassium 6.3 mmol/L (3.5-5.0); Sodium 127 mmol/L (135-145); Total Bilirubin 3.9 mg/dL (0.2-1.0); Total Protein 3.7 g/dL (6.4-8.9); eGFR CKD-EPI 14.5 (>60)
[2023-11-04 05:15] LABS: ABS Basophils 0.2 10^3/uL (0.0-0.1); ABS Eosinophils 0.6 10^3/uL (0.0-0.5); ABS Monocytes 0.4 10^3/uL (0.0-1.1); ABS Nucleated RBC 0.51 10^3/ul; Acanthocytes 1+; Burr Cells 2+; Eosinophil % 1.7 %; Hematocrit 35.3 % (38-53); Hemoglobin 9.6 g/dL (13.2-16.3); Large Platelets Present; Lymphocyte % 5.3 %; Macrocytosis 1+; Mean Corpuscular Hemoglobin 29.2 pg (27-33); Mean Corpuscular Hgb Conc 27.3 g/dL (31-36); Mean Corpuscular Volume 107.2 fL (80-97); Mean Platelet Volume 11.1 fL (7.5-11.2); Nucleated Red Blood Cells % 1.3 %/100WBC (0.0-0.8); Platelet Count 118 10^3/uL (150-450); Red Cell Distribution Width 17.6 % (12-17); White Blood Count 38.2 10^3/uL (3.6-10.2)
== END 2023-11-04 05:37 | disposition expired ==
LOC: ED 04:03 → EDHOLD 06:09 → ICU 07:00
PROVIDERS: ADMIT Internal Medicine; ATTEND Hospitalist